=== PATIENT | female | born 1985 | race Caucasian/White ===

== ENCOUNTER 2020-08-13 01:42 | Outpatient (CLI) | payer BC, SELFPAY ==
[2020-08-13 18:27] LABS: *AMPHETAMINES SCREEN URINE Negative (Negative); *BARBITURATES SCREEN URINE Negative (Negative); *BENZODIAZEPINES SCREEN URINE Negative (Negative); Cannabinoids THC Negative (Negative); Cocaine Screen,Urine Negative (Negative); METHADONE URINE SCREEN Negative (Negative); OPIATES URINE SCREEN Negative (Negative)
[2020-08-13 19:15] LABS: Tricyclic Antidepressants Negative (Negative)
[2020-08-16 02:45] LABS: Chlamydia amplified RNA Negative (Negative); N gonorrhoeae amplified RNA Negative (Negative); Source ENDOCERVIX
[2020-08-19 09:08] LABS: Buprenorphine Negative; Norbuprenorphine Negative
== END 2020-08-13 02:02 ==
PROVIDERS: Visit Provider Advanced Practice Midwife
DX: Z34.91 Encounter for supervision of normal pregnancy, unspecified, first trimester (principal)
CPT/HCPCS: 80307; 87491; 87591; 87086; 87480; 87510; 87660

== ENCOUNTER 2020-09-01 03:08 | Outpatient (CLI) | payer BC, SELFPAY ==
[2020-09-01 11:42] LABS: Kit/Specimen SENT
[2020-09-01 12:01] LABS: Abs Immature Grans 0.02 10^3/uL (0.0-0.06); Absolute Basophil Count 0.01 10^3/uL (0.0-0.2); Absolute Eosinophil Count 0.11 10^3/uL (0.0-0.7); Absolute Lymphocyte Count 2.33 10^3/uL (1.2-3.4); Absolute Monocyte Count 0.55 10^3/uL (0.1-0.8); Absolute Neutrophil Count 5.55 10^3/uL (1.2-6.7); Basophils % 0.1; Eosinophils % 1.3; HCT 37.7 % (36.0-46.0); HGB 12.5 g/dL (11.2-15.7); Immature Grans % 0.2; Lymphocytes % 27.2; MCH 29.1 pg (27.0-33.0); MCHC 33.2 % (32.0-36.0); MCV 87.7 fL (80-95); Monocytes % 6.4; Neutrophils % 64.8; Nucleated RBC 0 %; Platelet Count 216 10^3/uL (130-400); RDW 13.4 % (11.7-14.6); WBC 8.57 10^3/uL (4.4-10.8)
[2020-09-01 15:19] LABS: TSH (W/Ref FT4) 1.38 uIU/mL (0.36-3.74)
[2020-09-02 10:05] LABS: Hepatitis B Surface Ag Negative (Negative)
[2020-09-02 10:44] LABS: Varicella IgG Antibody Positive (See Note)
[2020-09-02 10:46] LABS: Rubella IgG Ab (UVM) Positive (See Note)
[2020-09-02 11:01] LABS: Hepatitis C Ab w Rflx HCV PCR Negative (Negative)
[2020-09-02 12:44] LABS: HIV-1/2 Ag & Ab Screen Negative (Negative)
[2020-09-02 16:25] LABS: Syphilis Total Ab w/Reflex Nonreactive (Nonreactive)
== END 2020-09-01 03:28 ==
PROVIDERS: Visit Provider Advanced Practice Midwife
DX: Z34.91 Encounter for supervision of normal pregnancy, unspecified, first trimester (principal); Z11.4 Encounter for screening for human immunodeficiency virus [HIV]; Z11.59 Encounter for screening for other viral diseases; Z01.84 Encounter for antibody response examination
CPT/HCPCS: 36415; 86787; 86803; 86850; 86900; 86901; 87340; 87389; 84443; 85025; 86762; 86780

== ENCOUNTER 2020-11-18 02:22 | Outpatient (CLI) | payer BC, SELFPAY ==
[2020-11-18 09:44] LABS: Abs Immature Grans 0.06 10^3/uL (0.0-0.06); Absolute Basophil Count 0.02 10^3/uL (0.0-0.2); Absolute Eosinophil Count 0.18 10^3/uL (0.0-0.7); Absolute Lymphocyte Count 1.88 10^3/uL (1.2-3.4); Absolute Monocyte Count 0.61 10^3/uL (0.1-0.8); Absolute Neutrophil Count 6.75 10^3/uL (1.2-6.7); Basophils % 0.2; Eosinophils % 1.9; HGB 12.8 g/dL (11.2-15.7); Immature Grans % 0.6; Lymphocytes % 19.8; MCH 29.6 pg (27.0-33.0); MCHC 33.7 % (32.0-36.0); MPV 10.5 fL (8.0-11.0); Monocytes % 6.4; Neutrophils % 71.1; Nucleated RBC 0 %; Platelet Count 220 10^3/uL (130-400); RBC 4.32 10^6/uL (3.93-5.22); RDW 12.9 % (11.7-14.6); RDW-SD 41.4 fL
[2020-11-18 09:54] LABS: Glucose,1 Hr (Glucola) 78 mg/dL (80-140)
== END 2020-11-18 02:23 | disposition home or self-care (01) ==
LOC: LBO 02:22
PROVIDERS: Obstetrics & Gynecology Gynecology; Visit Provider Advanced Practice Midwife
DX: Z34.93 Encounter for supervision of normal pregnancy, unspecified, third trimester (principal); Z3A.28 28 weeks gestation of pregnancy
CPT/HCPCS: 36415; 82950; 85025

== ENCOUNTER 2020-12-03 03:57 | Outpatient (CLI) | payer BC, SELFPAY ==
[2020-12-04 04:53] LABS: Vitamin D 25 Total 56.3 ng/ml (30-100)
== END 2020-12-03 03:58 | disposition home or self-care (01) ==
LOC: LBO 03:57
PROVIDERS: Visit Provider Advanced Practice Midwife
DX: Z34.93 Encounter for supervision of normal pregnancy, unspecified, third trimester (principal)
CPT/HCPCS: 36415; 82306

== ENCOUNTER 2020-12-16 01:48 | Outpatient (CLI) | payer BC, SELFPAY ==
--- NOTE | 2020-12-16 06:45 | DI.US_ITS ---
EXAM: US OB KOBI WEIGHT CLINICAL HISTORY: growth, KOBI, marginal cord insert,O43.199. TECHNIQUE: Transabdominal obstetrical ultrasound performed. COMPARISON: No exams were available for comparison FINDINGS: Transabdominal obstetrical ultrasound performed. FINDINGS: Number of fetuses: One. position: Cephalic. Placental location: Posterior. No evidence of previa. BIOMETRIC DATA: BPD: 78 mm = 31 weeks 3 days HC: 287 mm = 31 weeks 4 days AC: 272 mm = 31 weeks 2 days FL: 57 mm = 29 weeks 6 days EFW: 1658 grms 26% Composite Age: 31 weeks EDC: 02/17/2021 Heart Rate: 117BPM Amniotic fluid index: 14.5 cm. Visually, amount of fluid is within normal limits. Other: Placental cord insertion site is 1.9 cm from the placental edge. There does appear to be an e chogenic focus seen in the left ventricle. IMPRESSION: 1. Single live intrauterine gestation as above. 2. Marginal placental cord insertion site. 3. Echogenic focus seen in the left ventricle. 4. Estimated weight is 1658gms. 5. Amniotic fluid index is 14.5 cm. Visually within normal limits. DATA REPOSITORY:
== END 2020-12-16 02:08 ==
PROVIDERS: Visit Provider Advanced Practice Midwife
DX: O43.193 Other malformation of placenta, third trimester (principal)
CPT/HCPCS: 76816

== ENCOUNTER 2021-01-13 01:20 | Outpatient (CLI) | payer BC, SELFPAY ==
--- NOTE | 2021-01-13 07:30 | DI.US_ITS ---
EXAM: US OB KOBI WEIGHT CLINICAL HISTORY: interval growth,MARGINAL INSERTION UMBILICAL CORD TECHNIQUE: Ultrasound performed using standard protocol. COMPARISON: US US OB KOBI WEIGHT from 12/16/2020 FINDINGS: Ob ultrasound was performed utilizing 3rd trimester protocol. Placenta is posterior with no evidence of placenta previa. Note is again made of marginal cord insertion, it now lies about 2.5 cm from th e placental edge. Previously noted echogenic foci seen in left ventricle are not visualized on today 's examination. biometry is consistent with gestational age of 35 weeks 0 days and EDC of February 17. The estima marisa weight is 2554 grams which is at the 38th percentile for predicted gestational age There is visually a normal quantity of amniotic fluid and the KOBI is 14. heart rate is 147 BPM. IMPRESSION: DATA REPOSITORY:
== END 2021-01-13 01:40 ==
PROVIDERS: Visit Provider Advanced Practice Midwife
DX: O43.193 Other malformation of placenta, third trimester (principal); Z3A.35 35 weeks gestation of pregnancy
CPT/HCPCS: 76816

== ENCOUNTER 2021-01-20 14:15 | Outpatient (CLI) | payer BC, SELFPAY ==
[2021-01-20 14:27] VITALS: TEMP 36.9
[2021-01-20 14:44] VITALS: BP 117/83; PULSE 84
[2021-01-20 14:57] VITALS: TEMP 36.9
--- NOTE | 2021-01-20 14:57 | W.OBNST ---
Date of service: 01/20/21 Time of Service: 14:57 NST Evaluation Reason for NST Reasons for Nonstress Test: GESTATIONAL HYPERTENSION Gestational Age Gestational Age in Weeks and Days: 36 Weeks and 2Days Vital Signs Temperature: 98.4 F NST Information Date on Monitor: 01/20/21 Time on Monitor: Date off Monitor: 01/20/21 NST Interventions: PO Hydration NST Evaluation Patient States Movement: Present FHR Baseline: 140 Variability: Moderate 6-25 bpm Accelerations: 15x15 Decelerations: None NST Results: Reactive Note NST Note Note: BP check: normotensive NST Reviewed and Verified by: Lashaun Pittman
== END 2021-01-20 15:00 | disposition home or self-care (01) ==
LOC: BCD 14:19 → OBS 14:21
PROVIDERS: Visit Provider Advanced Practice Midwife
DX: O13.3 Gestational [pregnancy-induced] hypertension without significant proteinuria, third trimester (principal); Z3A.36 36 weeks gestation of pregnancy
CPT/HCPCS: 59025

== ENCOUNTER 2021-01-20 18:37 | Outpatient (REF) | payer BC, SELFPAY ==
[2021-01-20 18:06] LABS: *AMPHETAMINES SCREEN URINE Negative (Negative); *BARBITURATES SCREEN URINE Negative (Negative); *BENZODIAZEPINES SCREEN URINE Negative (Negative); Cannabinoids THC Negative (Negative); Cocaine Screen,Urine Negative (Negative); METHADONE URINE SCREEN Negative (Negative); OPIATES URINE SCREEN Negative (Negative)
[2021-01-20 18:07] LABS: Tricyclic Antidepressants Negative (Negative)
[2021-01-27 12:41] LABS: Buprenorphine Negative ng/mL (Cutoff: 5.0)
== END 2021-01-20 18:38 | disposition home or self-care (01) ==
LOC: LBN 18:37
PROVIDERS: Visit Provider Advanced Practice Midwife
DX: Z34.93 Encounter for supervision of normal pregnancy, unspecified, third trimester (principal); Z36.85 Encounter for antenatal screening for Streptococcus B; Z3A.37 37 weeks gestation of pregnancy
CPT/HCPCS: 80307; 87081

== ENCOUNTER 2021-01-23 10:04 | Outpatient (CLI) | payer BC, SELFPAY ==
[2021-01-23 10:37] VITALS: BP 147/85; PULSE 97; TEMP 36.9
[2021-01-23 10:56] VITALS: BP 147/85; PULSE 97
--- NOTE | 2021-01-23 11:07 | HPE_ITS ---
Date of service: 01/23/21 Time of Service: 11:07 Assessment and Plan Assessment and plan (1) History of pre-eclampsia in prior , currently in first trimester: Start date: 01/23/21 Start time: 11:15 Status: Acute Assessment and plan: will obtain baseline pre-eclampsia labs and repeat BP. Discussed that if labs are normal, we recommend twice weekly NST's. If abnormal will review with Dr. Cole who is OB hydrogenation still operator today for further plan of care. Patient has been educated on symptoms and signs of preeclampsia. KH (2) : Status: Acute OB-HPI Labor/Delivery History of Present Illness Reason for Visit: NST Chief Complaint: Other (elevated BP at home this morning 130/105, no FLORES, visual disturbance or epigastric pain.). CLEM Calculator Estimated Delivery Date Method Current WG Current Estimate 02/15/21 Ultrasound #1 36w 5d Other Estimates 02/15/21 LMP (Certain) 36w 5d History of Present Expected Delivery Route/Plan - CNM FOB - Rogelio Alves (third child together), works in [employer] and [email or web address]. Does not want to know gender; if male, no circ Interested in using tub for labor, maybe Specific Issues/Plan 1. AMA -[place]: low prob x3, low prob for X-linked aneuploidy. CF/SMA previously neg. Undecided re: AFP 1a. [facility] level 2 sono: Echogenic intracardiac focus. Marginal cord insertion, growth US recommended at 32 wks 1b. Growth scan at 32 wks done 12/16/20, EFW in 26th percentile, KOBI 14.5, will repeat at 36 wks (01/13) 1c. Ultrsound at 35 weeks- KOBI 14, EFW 38%ile. No evidence of EICF. 2. History of Gestational Hypertension x2. ASA 162 mg recommended daily 2a. Per [facility] consult -home B.P. monitoring at 20-24 weeks. Discussed w/pt 10/28/20 2b. doing random BP's at home, 120/70 average, no BP's > 130/80 3. History of genital herpes - prophylaxis at 36 weeks. 4. Vit D level @ pt request, 56.3, no further Vit D supplementation needed 5. Partner is vaccinated for covid. Catrina has received first injection. 6. Size less than dates - EFW by US 3%ile. Assessment: History Reviewed & Current Review of Systems All systems reviewed & are unremarkable except as noted in HPI and below PFSH Medical History (Updated 11/18/20 @ 10:57 by Yudy Bradford CNM) Asthma Bruising History of herpes genitalis Family History (Updated 08/13/20 @ 15:27 by Yudy Ibrahim CNM) Father Brain tumor at 51 Mother Psoriasis Paternal Aunt Breast cancer Paternal Cousin Breast cancer Paternal Grandmother Breast cancer Thyroid disease Paternal Uncle Thyroid disease Social History (Updated 09/30/20 @ 12:45 by Maty Denny MD) Smoking/Tobacco Use Status: Never Smoking risk assessment performed?: Yes Drug use: Never Household members: spouse, children and other Details: 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 Pets and animals: Yes History History 4 Para 2 Hx # Term Pregnancies 2 Multiple births 0 Hx # Pregnancies 0 Ectopic pregnancies 0 AB induced 1 Hx Number of Living Children 2 AB spontaneous 0 Past Pregnancies Del. Date GA/Weeks # Outcome Route Wgt Sex Labor Lgth Anesthes ia Location Prov [facility] 08/06/16 38 No Successful vaginal 6 lb 4 oz Male 12 [facility] 40 No Successful vaginal 8 lb 4 oz Male 6 [facility] and [place], [place] Delivery Date: 08/06/16 IOL for mild preeclampsia. No abnormal labs. jaundice. Yudy Ibrahim Delivery Date: 07/08/18 B.P. elevated post . Labs WNL. Started antihypertensive medication after delivery Yudy Ibrahim Meds Allergies and Home Medications Allergies Allergy/AdvReac Type Severity Reaction Status Date / Time epinephrine Allergy Severe Wheezing Verified 01/20/21 13:45 Home Medications Medication Instructions Recorded Confirmed Type prenat.vits,cris,[id number] 1 tab PO DAILY 07/16/20 09/30/20 History aspirin 81 mg tablet,delayed 162 mg PO DAILY tab 09/09/20 09/30/20 History release budesonide 90 mcg/actuation breath 1 inh INHALATION BID PRN 11/18/20 History activated powder inhaler cholecalciferol (vitamin D3) 50 3,000 unit PO DAILY cap 11/18/20 History mcg (2,000 unit) capsule valacyclovir 1 gram tablet 1,000 mg PO DAILY #30 tab 12/30/20 12/30/20 Rx Exam Physical Exam Vital signs: Pulse BP 97 H 147/85 H 01/23/21 10:56 01/23/21 10:56 Vital Signs Reviewed: Yes Narrative: Catrina admits to anxiety as she is concerned of developing pre- ecalmpsia. She reports that with her first child she developed elevated BP's but no protein in urine and was induced after 37 weeks gestation for such. She is hoping to not need induction. Denies any severe features, no swelling, no FLORES, no visual disturbances or epigastric pain. Reports active baby. No LOF or vaginal bleeding. No consistent contractions. KH Constitutional Constitutional: no acute distress Detailed Labor and Delivery Exam Batres Score: Cervical Points Exam 0 1 2 3 Dilation Closed 1-2cm 3-4 cm 5-6cm Effacement 0-30% 40-50% 60-70% 80% Consistency Firm Medium Soft Station -3 -2 -1,0 +1,+2 Position Posterior Mid Anterior Amniotic Membrane Status: Intact Monitor Mode: External Contraction Frequency(min): irregular / rare Contraction Duration(sec): 60-90 Contraction Intensity: Mild Fetus A Heart Rate Baseline: 135 Monitor Accelerations: 15 X 15 Monitor Decelerations: None Variability: Moderate (6-25 BPM) HEENT Exam HEENT Exam: Normal Neck Exam Neck Exam: Not Done Chest/Brest/Axilla Exam Chest Exam: Not Done Breast Exam Breast Exam: Not Done Respiratory Exam Respiratory Exam: Normal Cardiovascular Exam Cardiovascular Exam: Normal (HR 97 on initial VS) Detailed Abdominal Exam Abdominal: Present soft Comments: Gravid, size equals dates, cephalic by leopolds Rectal Exam Rectal Exam: Not Done Exam Exam: Not Done Extremities Exam Extremities Exam: Normal (no edema in hands, feet, ankles, face) Back/Spine/Pelvis Exam Back Exam: Not Done Skin Exam Skin Exam: Not Done Neurological Exam Neurological Exam: Normal (no hyper reflexia) Psychiatric Exam Psychiatric Exam: Normal Risk Assessment Risk for Shoulder Dystocia Historical/Initial OB: NEGATIVE FOR: Pelvic Abnormality, Pre- BMI>30, Previous Shoulder Dystocia or Previous Macrosomia Increased Risk?: No Risk for Pre-Eclampsia Yes, if one or more: POSTIVE FOR: Hx Pre-E/Gest HTN; NEGATIVE FOR: Chronic HTN, Multiple Gestation, Pre-gestational DM, Renal Disease, Systemic Lupus or APA Syndrome Yes, if 2 or more: POSITIVE FOR: Age>= 35 yrs; NEGATIVE FOR: Nulliparity, >10yr btwn pregnancies, BMI>30, ethinicty, Mother/Sister w/ Pre-E or Previous IUGR Risk for Post- Hemorrhage Initial: NEGATIVE FOR: Multiple Gestation, Previous PPH, Known Clotting Deficiency, Grand Multiparity or Anticoagulation Risks Reviewed Risks Reviewed Upon Admission: Yes (NST and ob observation today, risk diagnosis deferred until admission)
[2021-01-23 11:18] VITALS: BP 139/96; PULSE 100
[2021-01-23 11:24] LABS: HCT 31.9 % (36.0-46.0); HGB 10.8 g/dL (11.2-15.7); MCH 28.4 pg (27.0-33.0); MCHC 33.9 % (32.0-36.0); MCV 83.9 fL (80-95); MPV 11.4 fL (8.0-11.0); Platelet Count 194 10^3/uL (130-400); RDW 12.4 % (11.7-14.6); RDW-SD 37.8 fL; WBC 8.59 10^3/uL (4.4-10.8)
--- NOTE | 2021-01-23 11:26 | W.OBNST ---
Date of service: 01/23/21 Time of Service: 11:20 NST Evaluation Reason for NST Reasons for Nonstress Test: GESTATIONAL HYPERTENSION Gestational Age Gestational Age in Weeks and Days: 36 Weeks and 5Days Test and Monitor Explained Test/Monitor Explained: Test Explained, Monitor Explained and Patient Verbalized Understanding Vital Signs Blood Pressure: 147/85 Pulse: 97 Temperature: 98.4 F NST Information Date on Monitor: 01/23/21 Time on Monitor: 10:42 Date off Monitor: 01/23/21 Time off Monitor: 11:20 Total Time on Monitor: 38 NST Interventions: PO Hydration NST Evaluation Patient States Movement: Present Variability: Moderate 6-25 bpm Accelerations: 15x15 Decelerations: None NST Results: Reactive Note NST Note Note: Catrina presented for NST due to elevated home BP this morning of 130/105. BP 147/85 here on initial assessment. Preeclampsia labs ordered and will continue to monitor BP while awaiting results. No other complaints. NST is reactive and reassuring. See H&P. NST Reviewed and Verified by: Yudy Bradford
[2021-01-23 11:28] VITALS: BP 147/85; PULSE 97; TEMP 36.9
[2021-01-23 11:32] LABS: ALT 16 U/L (14-59); AST 19 U/L (15-37); Albumin 2.4 g/dL (3.4-5.0); Alkaline Phosphatase 124 U/L (46-116); Anion Gap 8.9 mmol/L (3-11); BUN 8 mg/dL (7-18); Bilirubin, Total 0.3 mg/dL (0.2-1.0); CO2 25.1 mmol/L (21.0-32.0); CREATININE 0.6 mg/dL (0.55-1.02); Calcium 8.5 mg/dL (8.5-10.1); Chloride 105 mmol/L (98-107); Glucose 98 mg/dL (74-106); LDH 183 U/L (81-234); Potassium 3.7 mmol/L (3.5-5.1); Sodium 139 mmol/L (136-145); Total Protein 5.7 g/dL (6.4-8.2); Uric Acid 3.9 mg/dL (2.6-6.0)
[2021-01-23 12:21] LABS: COMMENT (LAB VIEW ONLY) 67.24 mg/dL; PROTEIN 7.2 mg/dL
--- NOTE | 2021-01-23 12:31 | DSE_ITS ---
Date of service: 01/23/21 Time of Service: 12:31 DS: Diagnosis Discharge Diagnosis (1) History of pre-eclampsia in prior , currently in first trimester: Status: Acute (2) : Status: Acute Discharge Plan Disposition Patient Disposition: HOME Condition: Good Discharge Details Reason For Visit: NST Attending Provider: Yudy Bradford Primary Care Provider: Unknown,Unknown Hospital Course Hospital Course: Had reactive NST and pre-eclampsia labs that were negative today. Will start twice weekly NST's. Home Meds and New Rx's Prescriptions: No Action valacyclovir [Valtrex] 1 gram tablet 1,000 mg PO DAILY Qty: 30 RF: 0 Pulmicort Flexhaler 90 mcg/actuation aerosol powdr breath activated 1 inh inhalation BID PRNRF: 0 cholecalciferol (vitamin D3) [Vitamin D3] 50 mcg (2,000 unit) capsule 3,000 unit PO DAILY RF: 0 prenat.vits,cris,jsj-zxks-kjutz Tablet 1 tab PO DAILY RF: 0 aspirin 81 mg tablet,delayed release (DR/EC) 162 mg PO DAILY RF: 0 Discharge Instructions Activity:: Activity as Tolerated Activity:: Activity as Tolerated Equipment/Supplies:: No Equipment Needed Diet:: As Tolerated Discharge Data Discharge Date/Time-TO BE ENTERED AT DEPARTURE: 01/23/21 12:30 Discharge Physician: Yudy Bradford OB:DS Summary Contraception Discussed Contraception Discussed: No, Status at Discharge Functional status at discharge: independent ambulation Overall status at discharge: patient is back to baseline Mental Status: mental status grossly normal Speech and Movement: speech and movement normal Mood: congruent mood Affect: normal affect Exam Physical Exam Vital signs: Pulse BP 100 H 139/96 H 01/23/21 11:18 01/23/21 11:18 Vital Signs Reviewed: Yes Notable Details: Pre eclampsia labs neg, NO symptoms, reactive NST. Constitutional Constitutional: no acute distress HEENT Exam HEENT Exam: Normal Neck Exam Neck Exam: Not Done Respiratory Exam Respiratory Exam: Not Done Cardiovascular Exam Cardiovascular Exam: Not Done Fundal Exam Comment: size equals dates. Extremities Exam Extremity Exam: Normal Neurological Exam Neurological Exam: Normal Psychiatric Exam Psychiatric Exam: Normal COUNT INCLUDES THE [facility] Medical History (Updated 11/18/20 @ 10:57 by Yudy Bradford CNM) Asthma Bruising History of herpes genitalis Family History (Updated 08/13/20 @ 15:27 by Yudy Ibrahim CNM) Father Brain tumor at 51 Mother Psoriasis Paternal Aunt Breast cancer Paternal Cousin Breast cancer Paternal Grandmother Breast cancer Thyroid disease Paternal Uncle Thyroid disease Social History (Updated 09/30/20 @ 12:45 by Maty Denny MD) Smoking/Tobacco Use Status: Never Smoking risk assessment performed?: Yes Drug use: Never Household members: spouse, children and other Details: 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 Pets and animals: Yes History History 4 Para 2 Hx # Term Pregnancies 2 Multiple births 0 Hx # Pregnancies 0 Ectopic pregnancies 0 AB induced 1 Hx Number of Living Children 2 AB spontaneous 0 Past Pregnancies Del. Date GA/Weeks # Outcome Route Wgt Sex Labor Lgth Anesthes ia Location [facility] 08/06/16 38 No Successful vaginal 6 lb 4 oz Male 12 [facility] 40 No Successful vaginal 8 lb 4 oz Male 6 [facility] and [place], [place] Delivery Date: 08/06/16 IOL for mild preeclampsia. No abnormal labs. jaundice. Yudy Ibrahim Delivery Date: 07/08/18 B.P. elevated post . Labs WNL. Started antihypertensive medication after delivery Yudy Ibrahim DS: Data Vitals/I&O Vitals and I&O: Vital Signs Pulse 100 H 01/23/21 11:18 Blood Pressure 139/96 H 01/23/21 11:18 Data Completed and Pending Labs on day of discharge: Labs from last 24 hours 01/23/21 01/23/21 01/23/21 11:30 11:11 11:11 WBC 8.59 RBC 3.80 L Hgb 10.8 L Hct 31.9 L MCV 83.9 MCH 28.4 MCHC 33.9 RDW 12.4 Plt Count 194 MPV 11.4 H Sodium 139 Potassium 3.7 Chloride 105 Carbon Dioxide 25.1 Anion Gap 8.9 BUN 8 Creatinine 0.6 Estimated GFR/1.73 m2 >= 60.00 Glucose 98 Uric Acid 3.9 Calcium 8.5 Total Bilirubin 0.3 AST 19 ALT 16 Alkaline Phosphatase 124 H Lactate Dehydrogenase 183 Total Protein 5.7 L Albumin 2.4 L Ur Random Creatinine 67.24 U Random Total Protein 7.2 U [place] Prot/Creat Ratio 0.10
== END 2021-01-23 12:30 | disposition home or self-care (01) ==
LOC: BCD 10:08 → OBS 10:32
PROVIDERS: Visit Provider Advanced Practice Midwife
DX: O13.3 Gestational [pregnancy-induced] hypertension without significant proteinuria, third trimester (principal); O09.293 Supervision of pregnancy with other poor reproductive or obstetric history, third trimester; Z3A.36 36 weeks gestation of pregnancy
CPT/HCPCS: 59025; 36415; 80053; 85027; 82565; 83615; 84156; 84550

== ENCOUNTER 2021-01-27 07:05 | Outpatient (CLI) | payer BC, SELFPAY ==
[2021-01-27 11:07] VITALS: BP 130/76; PULSE 86; TEMP 36.8
[2021-01-27 11:13] VITALS: BP 130/76; PULSE 86; TEMP 36.8
--- NOTE | 2021-01-27 11:25 | W.OBNST ---
Date of service: 01/27/21 Time of Service: 11:25 NST Evaluation Reason for NST Reasons for Nonstress Test: CHRONIC HYPERTENSION Gestational Age Gestational Age in Weeks and Days: 37 Weeks and 2Days Test and Monitor Explained Test/Monitor Explained: Test Explained, Monitor Explained and Patient Verbalized Understanding Vital Signs Blood Pressure: 130/76 Pulse: 86 Temperature: 98.2 F Urine Results Urine Protein: Negative Urine Ketones: Positive Urine Glucose: Negative Urine Blood: Negative NST Information Date on Monitor: 01/27/21 Time on Monitor: 11:01 Date off Monitor: 01/27/21 Time off Monitor: 11:23 Total Time on Monitor: 22 NST Interventions: PO Hydration NST Evaluation Patient States Movement: Present FHR Baseline: 135 Variability: Moderate 6-25 bpm Accelerations: 15x15 Decelerations: None NST Results: Reactive Note NST Note Note: Catrina presents for scheduled NST. No complaints, reports active baby. Plans to change time of Valtrex dosage to day vs evening to see if it affects her BP's as she feels she is better hydrated in the daytime. Will keep office appointment 01/28/21 and NST 01/30/21.Today's NST is reactive and reassuring with CAT I tracing. No evidence of contractions.AMIE NST Reviewed and Verified by: Yudy Bradford
[2021-01-27 11:27] VITALS: BP 130/76; PULSE 86; TEMP 36.8
== END 2021-01-27 11:23 | disposition home or self-care (01) ==
LOC: BCD 07:09 → OBS 10:59
PROVIDERS: Visit Provider Advanced Practice Midwife
DX: O10.013 Pre-existing essential hypertension complicating pregnancy, third trimester (principal); Z3A.37 37 weeks gestation of pregnancy
CPT/HCPCS: 59025

== ENCOUNTER 2021-01-30 08:54 | Outpatient (CLI) | payer BC, SELFPAY ==
[2021-01-30 11:05] VITALS: BP 140/81; PULSE 77; TEMP 36.8
[2021-01-30 11:28] VITALS: BP 140/81; PULSE 77
--- NOTE | 2021-01-30 11:42 | W.OBNST ---
Date of service: 01/30/21 Time of Service: 11:43 NST Evaluation Reason for NST Reasons for Nonstress Test: GESTATIONAL HYPERTENSION Gestational Age Gestational Age in Weeks and Days: 37 Weeks and 5Days Test and Monitor Explained Test/Monitor Explained: Test Explained, Monitor Explained and Patient Verbalized Understanding Vital Signs Blood Pressure: 140/81 Pulse: 77 Temperature: 98.2 F NST Information Date on Monitor: 01/30/21 Time on Monitor: 11:05 Date off Monitor: 01/30/21 Time off Monitor: 11:37 Total Time on Monitor: 32 NST Interventions: PO Hydration and Reposition Patient NST Evaluation Patient States Movement: Present FHR Baseline: 130 Variability: Moderate 6-25 bpm Accelerations: 15x15 Decelerations: None NST Results: Reactive Note NST Note Note: Catrina is here for scheuled NST, no complaints. NST is reactive and reassuring. Will RTO for visit as scheduled and continue NST's twice weekly. NST Reviewed and Verified by: Yudy Bradford
[2021-01-30 11:43] VITALS: BP 140/81; PULSE 77; TEMP 36.8
[2021-01-30 16:37] VITALS: BP 119/76; PULSE 80
== END 2021-01-30 11:40 | disposition home or self-care (01) ==
LOC: BCD 08:56 → OBS 10:18
PROVIDERS: Visit Provider Advanced Practice Midwife
DX: O13.3 Gestational [pregnancy-induced] hypertension without significant proteinuria, third trimester (principal); Z3A.37 37 weeks gestation of pregnancy
CPT/HCPCS: 59025

== ENCOUNTER 2021-02-03 08:33 | Outpatient (CLI) | payer BC, SELFPAY ==
[2021-02-03 11:09] VITALS: BP 136/81; PULSE 92; TEMP 36.7
[2021-02-03 11:23] VITALS: BP 136/81; PULSE 92
--- NOTE | 2021-02-10 13:02 | W.OBNST ---
Date of service: 02/03/21 Time of Service: 17:00 NST Evaluation Reason for NST Reasons for Nonstress Test: GESTATIONAL HYPERTENSION Gestational Age Gestational Age in Weeks and Days: 39 Weeks and 2Days Test and Monitor Explained Test/Monitor Explained: Test Explained, Monitor Explained and Patient Verbalized Understanding Vital Signs Blood Pressure: 136/81 Pulse: 92 Temperature: 98.1 F Urine Results Urine Protein: Negative Urine Ketones: Negative Urine Glucose: Negative Urine Blood: Negative NST Information Date on Monitor: 02/03/21 Time on Monitor: 11:18 Date off Monitor: 02/03/21 Time off Monitor: 11:45 Total Time on Monitor: 27 NST Interventions: PO Hydration NST Evaluation Patient States Movement: Present FHR Baseline: 130 Variability: Moderate 6-25 bpm Accelerations: 15x15 Decelerations: None NST Results: Reactive Note NST Note Note: Reactive NST, Continue 2 x weekly NST for history of preeclampsia and borderline hypertension NST Reviewed and Verified by: Yudy Ibrahim
[2021-02-10 13:03] VITALS: BP 136/81; PULSE 92; TEMP 36.7
== END 2021-02-03 11:45 | disposition home or self-care (01) ==
LOC: BCD 08:33 → OBS 11:06
PROVIDERS: Visit Provider Advanced Practice Midwife
DX: O13.3 Gestational [pregnancy-induced] hypertension without significant proteinuria, third trimester (principal); Z3A.39 39 weeks gestation of pregnancy
CPT/HCPCS: 59025

== ENCOUNTER 2021-02-06 07:20 | Outpatient (CLI) | payer BC, SELFPAY ==
[2021-02-06 08:07] VITALS: BP 136/95; PULSE 91; TEMP 37.1
[2021-02-06 08:21] VITALS: BP 136/95; PULSE 91
[2021-02-06 08:30] VITALS: BP 124/79; PULSE 80
--- NOTE | 2021-02-06 08:42 | W.OBNST ---
Date of service: 02/06/21 Time of Service: 08:30 NST Evaluation Reason for NST Reasons for Nonstress Test: GESTATIONAL HYPERTENSION Gestational Age Gestational Age in Weeks and Days: 38 Weeks and 5Days Test and Monitor Explained Test/Monitor Explained: Test Explained, Monitor Explained and Patient Verbalized Understanding Vital Signs Blood Pressure: 136/95 Pulse: 91 Temperature: 98.8 F NST Information Date on Monitor: 02/06/21 Time on Monitor: 08:09 Date off Monitor: 02/06/21 Time off Monitor: 08:35 Total Time on Monitor: 26 NST Interventions: PO Hydration NST Evaluation Patient States Movement: Present FHR Baseline: 135 Variability: Moderate 6-25 bpm Accelerations: 15x15 Decelerations: None NST Results: Reactive Note NST Note Note: No complaints, denies FLORES, visual disturbance or epigastric pain. States she is hoping to be delivered later in the 39th week if possible. repairer typewriter instructed patient to bring her bags to stay next Tuesday but if BP's are stable and the bill poster installer chief [employer] division feels she can be pushed closer to 40 weeks for induction we will accommodate that. Patient agrees with this plan. Otherwise will induce on 02/10/21. Patient is hoping to avoid pitocin if possible. Legislative Correspondent reviewed this would be determined by cervical exam next week. Initial BP elevated today 138/95 but within a few minutes of resting it was 124/79. I have reviewed signs of pre-eclampsia and labor and when to call. NST Reviewed and Verified by: Yudy Bradford
[2021-02-06 08:43] VITALS: BP 136/95; PULSE 91; TEMP 37.1
[2021-02-06 09:06] VITALS: BP 135/95; PULSE 102
== END 2021-02-06 08:37 | disposition home or self-care (01) ==
LOC: BCD 07:22 → OBS 07:40
PROVIDERS: Visit Provider Advanced Practice Midwife
DX: O13.3 Gestational [pregnancy-induced] hypertension without significant proteinuria, third trimester (principal); Z3A.38 38 weeks gestation of pregnancy
CPT/HCPCS: 59025

== ENCOUNTER 2021-02-10 08:12 | Outpatient (CLI) | payer BC, SELFPAY ==
[2021-02-10 11:04] VITALS: BP 134/75; PULSE 86; TEMP 37.2
--- NOTE | 2021-02-10 19:16 | W.OBNST ---
Date of service: 02/10/21 Time of Service: 19:16 NST Evaluation Reason for NST Reasons for Nonstress Test: GESTATIONAL HYPERTENSION Gestational Age Gestational Age in Weeks and Days: 39 Weeks and 2Days Test and Monitor Explained Test/Monitor Explained: Test Explained, Monitor Explained and Patient Verbalized Understanding Vital Signs Blood Pressure: 134/75 Pulse: 86 Temperature: 99.0 F NST Information Date on Monitor: 02/10/21 Time on Monitor: 11:05 Date off Monitor: 02/10/21 Time off Monitor: 11:43 Total Time on Monitor: 38 NST Interventions: PO Hydration and Reposition Patient NST Evaluation Patient States Movement: Present FHR Baseline: 130 Variability: Moderate 6-25 bpm Accelerations: 15x15 Decelerations: None NST Results: Reactive Note NST Note Note: Normotensive today, returns 02/13 for repeat NST and BP check NST Reviewed and Verified by: Lashaun Pittman
[2021-02-10 19:17] VITALS: BP 134/75; PULSE 86; TEMP 37.2
== END 2021-02-10 11:44 | disposition home or self-care (01) ==
LOC: BCD 08:14 → OBS 11:03
PROVIDERS: Visit Provider Advanced Practice Midwife
DX: O13.3 Gestational [pregnancy-induced] hypertension without significant proteinuria, third trimester (principal); Z3A.39 39 weeks gestation of pregnancy
CPT/HCPCS: 59025

== ENCOUNTER 2021-02-10 19:57 | Inpatient (IN) | payer BC, SELFPAY ==
[2021-02-10] VITALS (10 sets, daily range): BP systolic 132–151; BP diastolic 72–89; PULSE 73–84; RESP 16–18; TEMP 37.1–37.2; O2SAT 99
[2021-02-10] MEDS: Oxytocin 10 UNITS/ML VIAL IM (20:50)
[2021-02-10 20:58] LABS: Source Nasal/Nares
[2021-02-10 21:00] LABS: HCT 34.9 % (36.0-46.0); HGB 11.5 g/dL (11.2-15.7); MCH 27.3 pg (27.0-33.0); MCV 82.9 fL (80-95); MPV 11.9 fL (8.0-11.0); Platelet Count 223 10^3/uL (130-400); RBC 4.21 10^6/uL (3.93-5.22); RDW 12.8 % (11.7-14.6); RDW-SD 38.7 fL; WBC 10.81 10^3/uL (4.4-10.8)
[2021-02-10] MEDS: miSOPROStol 200 MCG TAB 800 MCG PO (21:00)
--- NOTE | 2021-02-10 21:20 | W.PM.OBHPL1 ---
Date of service: 02/10/21 Time of Service: :20 Assessment and Plan Assessment and plan (1) 39 weeks gestation of : Status: Acute Assessment and plan: A: Advanced active labor Intact membranes GBS+ Category 1 tracing P: Delivery imminent OB-HPI Labor/Delivery History of Present Illness Reason for Visit: labor at term Chief Complaint: Uterine Contractions (contractions irregular adn mild all day, became strong at 1900, no ROM, vaginal bloody show noted upon arrival to ). CLEM Calculator Estimated Delivery Date Method Current WG Current Estimate 02/15/21 Ultrasound #1 39w 2d Other Estimates 02/15/21 LMP (Certain) 39w 2d History of Present Expected Delivery Route/Plan - CNM FOB - Rogelio Alves (third child together), works in [facility] and [employer]. Does not want to know gender; if male, no circ Interested in using tub for labor, maybe GBS POSITIVE, plan for PCN prophylaxis in labor Specific Issues/Plan 1. AMA -[place]: low prob x3, low prob for X-linked aneuploidy. CF/SMA previously neg. Undecided re: AFP 1a. [facility] level 2 sono: Echogenic intracardiac focus. Marginal cord insertion, growth US recommended at 32 wks 1b. Growth scan at 32 wks done 12/16/20, EFW in 26th percentile, KOBI 14.5, will repeat at 36 wks (01/13) 1c. Ultrsound at 35 weeks- KOBI 14, EFW 38%ile. No evidence of EICF. 1d. cord insertion at 35 weeks 2.5cm from os, eccentric insertion 2. History of Gestational Hypertension x2. ASA 162 mg recommended daily 2a. Per [facility] consult -home B.P. monitoring at 20-24 weeks. Discussed w/pt 10/28/20 2b. doing random BP's at home, 120/70 average, no BP's > 130/80 3. History of genital herpes - prophylaxis at 36 weeks. 4. Vit D level @ pt request, 56.3, no further Vit D supplementation needed 5. Partner is vaccinated for covid. Catrina has received first injection. 6. Size less than dates - EFW by US 38%ile with KOBI 14 7. GBS positive Review of Systems All systems reviewed & are unremarkable except as noted in HPI and below Constitutional Constitutional: Reports system reviewed and no additional complaints, except as documented Cardiovascular Cardiovascular: Reports system reviewed and no additional complaints, except as documented Respiratory Respiratory: Reports system reviewed and no additional complaints, except as documented Gastrointestinal Gastrointestinal: Reports system reviewed and no additional complaints, except as documented Genitourinary Genitourinary: Reports as per HPI Musculoskeletal Musculoskeletal: Reports system reviewed and no additional complaints, except as documented Integumentary/Breasts Skin/Breast: Reports system reviewed and no additional complaints, except as documented Neurologic Neurologic: Reports system reviewed and no additional complaints, except as documented Psychiatric Psychiatric: Reports system reviewed and no additional complaints, except as documented Endocrine Endocrine: Reports system reviewed and no additional complaints, except as documented PFSH Medical History (Updated 02/10/21 @ 21:30 by Lashaun Pittman) Asthma Bruising History of herpes genitalis Family History (Updated 08/13/20 @ 15:27 by Yudy Ibrahim CNM) Father Brain tumor at 51 Mother Psoriasis Paternal Aunt Breast cancer Paternal Cousin Breast cancer Paternal Grandmother Breast cancer Thyroid disease Paternal Uncle Thyroid disease Social History (Updated 09/30/20 @ 12:45 by Maty Denny MD) Smoking/Tobacco Use Status: Never Smoking risk assessment performed?: Yes Drug use: Never Household members: spouse, children and other Details: 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 Pets and animals: Yes History History 4 Para 2 Hx # Term Pregnancies 2 Multiple births 0 Hx # Pregnancies 0 Ectopic pregnancies 0 AB induced 1 Hx Number of Living Children 2 AB spontaneous 0 Past Pregnancies Del. Date GA/Weeks # Outcome Route Wgt Sex Labor Lgth Anesthesia Location Prov Complic 08/06/16 38 No Successful vaginal 6 lb 4 oz Male 12 local [facility] 07/08/18 40 No Successful vaginal 8 lb 4 oz Male 6 local and [place], [place] Delivery Date: 08/06/16 IOL for mild preeclampsia. No abnormal labs. jaundice. Yudy Ibrahim Delivery Date: 07/08/18 B.P. elevated post . Labs WNL. Started antihypertensive medication after delivery Yudy Ibrahim Meds Allergies and Home Medications Allergies Allergy/AdvReac Type Severity Reaction Status Date / Time epinephrine Allergy Severe Wheezing Verified 02/06/21 08:30 Home Medications Medication Instructions Recorded Confirmed Type prenat.vits,cris,mqh-scwh-irvho 1 tab PO DAILY 07/16/20 02/06/21 History aspirin 81 mg tablet,delayed 162 mg PO DAILY tab 09/09/20 02/06/21 History release budesonide 90 mcg/actuation breath 1 inh INHALATION BID PRN 11/18/20 02/06/21 History activated powder inhaler cholecalciferol (vitamin D3) 50 3,000 unit PO DAILY cap 11/18/20 02/06/21 History mcg (2,000 unit) capsule valacyclovir 1 gram tablet 1,000 mg PO DAILY #30 tab 12/30/20 02/06/21 Rx Exam Physical Exam Vital signs: Pulse BP 80 145/79 H 02/10/21 21:15 02/10/21 21:15 Vital Signs Reviewed: Yes Constitutional Constitutional: no acute distress Detailed Labor and Delivery Exam Dilation: 7 Effacement (%): 100 station: +1 Cervix position: anterior Consistency: soft Batres Score: Cervical Points Exam 0 1 2 3 Dilation Closed 1-2cm 3-4 cm 5-6cm Effacement 0-30% 40-50% 60-70% 80% Consistency Firm Medium Soft Station -3 -2 -1,0 +1,+2 Position Posterior Mid Anterior Amniotic Membrane Status: Intact Contraction Frequency(min): every 3 minutes Contraction Intensity: Strong Fetus A Heart Rate Baseline: 135 Monitor Accelerations: 15 X 15 Monitor Decelerations: None Variability: Moderate (6-25 BPM) Presentation: Cephalic Categories: Category I Est. Weight: 6 lb 9.822 oz Est. Weight: 3000 gm Date of Membrane Rupture: 02/10/21 Time of Membrane Rupture: 20:47 HEENT Exam HEENT Exam: Normal Neck Exam Neck Exam: Normal Chest/Brest/Axilla Exam Chest Exam: Normal Breast Exam Breast Exam: Normal Respiratory Exam Respiratory Exam: Normal Cardiovascular Exam Cardiovascular Exam: Normal Abdominal Exam Abdominal Exam: Normal (Gravid) Rectal Exam Rectal Exam: Normal Exam Exam: Normal Extremities Exam Extremities Exam: Normal Back/Spine/Pelvis Exam Back Exam: Normal Pelvis Adequate: Yes Skin Exam Skin Exam: Normal Neurological Exam Neurological Exam: Normal Psychiatric Exam Psychiatric Exam: Normal Results Results Group Beta Strep: Positive Blood Type: O+ Rubella Status: Immune Varicella Immunity: Immune Abnormal Lab Findings: Abnormal Labs 02/10/21 20:42 WBC 10.81 H Hct 34.9 L MPV 11.9 H Risk Assessment Risk for Shoulder Dystocia Historical/Initial OB: NEGATIVE FOR: Pelvic Abnormality, Pre- BMI>30, Previous Shoulder Dystocia or Previous Macrosomia Increased Risk?: No Delivery Plan @ 36wks: spont labor, Risk for Pre-Eclampsia Daily Dose ASA Indicated: Yes Yes, if one or more: POSTIVE FOR: Hx Pre-E/Gest HTN; NEGATIVE FOR: Chronic HTN, Multiple Gestation, Pre-gestational DM, Renal Disease, Systemic Lupus or APA Syndrome Yes, if 2 or more: POSITIVE FOR: Age>= 35 yrs; NEGATIVE FOR: Nulliparity, >10yr btwn pregnancies, BMI>30, ethinicty, Mother/Sister w/ Pre-E or Previous IUGR Risk for Post- Hemorrhage Initial: NEGATIVE FOR: Multiple Gestation, Previous PPH, Known Clotting Deficiency, Grand Multiparity or Anticoagulation At Risk?: Yes Counseled re: Active Management: Yes Risks Reviewed Risks Reviewed Upon Admission: Yes
--- NOTE | 2021-02-10 21:32 | W.OBDELIVERY ---
Date of service: 02/10/21 Time of Service: 21:32 OB Labor/ Delivery Information Baby A Delivery Delivery Method: Spontaneaous Presentation: Cephalic Cephalic Position: Vertex Vertex Position: Left Occipital Anterior Breech Position: N/A Cord Description-Baby A: 3 Vessels Cord Description Comment: placenta intact with eecentric cord insertion, 1 inch from margin Amniotic Fluid: Clear Estimated Blood Loss: QBL 600 ml Delivery Outcome: Liveborn Transferred: Remains with Mother Note: Pt arrived to active advanced labor, in excellent control accompanied by . Lab called STAT for blood draw, COVID swab collected and IV access established within a 15 minute period. Pt began involuntarily bearing down and head became visible at the introitus, perineum supported by RN until CNM was able to glove, controlled delivery of head over intact perineum for vigorous male infant, shoulders came easily and baby placed directly into mother's arms. Pitocin 10 units given IM, cord ceased pulsating, clamped then cut by FOB, cord blood collected. [place] placenta intact with 3VC, initially heavy vaginal bleeding noted. Fundal massage until firm and CNM kept hand on fundus while monitoring for further bleeding, 800 mcg misoprostel given PO. Moderate amount of clots evacuated from os and lochia reduced to minimal. 1 stitch of 3.0 Vicryl placed in small superficial introital tear. QBL calculated @ 600 ml, pitocin infusion started. Arrival in room to delivery was 22 minutes. Apgars 9/9, weight 2895 gms. Providers Nurse Industrial Roof Plumber: Lashaun Pittman Nurse: Jany Hernandez Nurse: Pam Hernandez Labor/Delivery Information Number of Babies in Womb: 1 Steroids Given: None Reason Steroids Not Administered: N/A Group Beta Strep: Positive Antibiotics Administered: No Rubella Status: Immune Blood Type: O+ Varicella Immunity: Immune Medication in Delivery: 10U Oxytocin IM, 800 mcg misoprostol SL Maternal Complications: Precipitous Labor(<3hrs) Shoulder Dystocia: No Stages of Labor Onset of Labor Date: 02/10/21 Onset of Labor Time: 19:00 Complete Dilatation Date: 02/10/21 Complete Dilatation Time: 20:40 Labor - Stage 1 Duration: 0 minutes ROM Baby A: 02/10/21 ROM Baby A: 20:47 ROM Total Time- Baby A: [id number] Delivery Date-Baby A: 02/10/21 Delivery Time-Baby A: 20:47 Labor Stage 2 Duration: 7 minutes Placenta Delivery Date-Baby A: 02/10/21 Placenta Delivery Time-Baby A: 20:53 Labor-Stage 3 Duration: 6 minutes Total Length of Labor-Baby A: 1 hours and 47 minutes Placenta Status: Delivered Baby A Gender: Male Gestational Status: Term (39-41.6 wks) Gestational Age in Weeks/Days: 39 Weeks and 2 Days weight: 6 lb 6.118 oz Weight Comment: 2895 gms Score-1 Minute Interval(Baby A) Heart Rate-1 minute: 100 BPM or Greater Respiratory Effort- 1 minute: Spontaneous/Strong Cry Muscle Tone-1 minute: Active Movement Reflex Response-1 minute: Prompt Response Color-1 minute: Bluish Hands or Feet Total Score-1 minute: 9 Score-5 Minute Interval(Baby A) Heart Rate- 5 minute: 100 BPM or Greater Respiratory Effort-5 minute: Spontaneous/Strong Cry Muscle Tone-5 minute: Active Movement Reflex Response-5 minute: Prompt Response Color-5 minute: Bluish Hands or Feet Total Score- 5 minute: 9
[2021-02-10 21:35] LABS: COVID-19 PCR Negative (Negative)
[2021-02-10] MEDS: Oxytocin/Normal Saline 30 UNIT/500 ML BAG 334 UNITS IV (21:45)
[2021-02-11 00:45] VITALS: BP 134/79; PULSE 88; RESP 16; TEMP 37
[2021-02-11 06:52] LABS: HGB 10.7 g/dL (11.2-15.7); MCH 27.9 pg (27.0-33.0); MCHC 33.4 % (32.0-36.0); MCV 83.3 fL (80-95); MPV 11.5 fL (8.0-11.0); Platelet Count 191 10^3/uL (130-400); RBC 3.84 10^6/uL (3.93-5.22); RDW 12.9 % (11.7-14.6); RDW-SD 39.1 fL; WBC 12.44 10^3/uL (4.4-10.8)
[2021-02-11 07:31] VITALS: BP 133/92; PULSE 93; RESP 18; TEMP 37.2
--- NOTE | 2021-02-11 10:04 | OBPPV_ITS ---
Date of service: 02/11/21 Time of Service: 10:05 Assessment and Plan Assessment and plan (1) Term delivered: Status: Acute Assessment and plan: A: nml PPD#1 Hx gest HTN, BP's 130's/70's generally No FLORES, abd pain, or vision changes GBS+ without IP prophylaxis P: cont to monitor maternal BP pt plans IUD at 6 wks, options for LARC reviewed Planning for discharge at 48 hrs Will f/up @ 2 & 6 wks PP Consider 1 wk appt for BP check Subjective Subjective Patient comments: No complaints, Pain well controlled, Tolerating diet and Flatus present [place] baby status: Doing well, Nursing well, Rooming in and Strong Bonding Observed [place] feeding status: Exclusively breast feeding Exam Physical Exam Vital signs: Temp Pulse Resp BP Pulse Ox 98.9 F 93 H 18 133/92 H 99 02/11/21 07:31 02/11/21 07:31 02/11/21 07:31 02/11/21 07:31 02/10/21 22:45 Vital Signs Reviewed: Yes Notable Details: BP's nml through the night at 130's over 70's Constitutional Constitutional: no acute distress HEENT Exam HEENT Exam: Normal Neck Exam Neck Exam: Normal Breast Exam Bilateral: Breast Exam: Normal and Soft Nipple Exam: Normal and Uninjured Respiratory Exam Respiratory Exam: Normal Cardiovascular Exam Cardiovascular Exam: Normal Abdominal Exam Abdomen: Other (soft, nontender) Fundal Exam Fundus: Below Umbilicus and Firm Rectal Exam Rectal Exam: Normal Exam Perineum: Intact and Normal Extremities Exam Extremity Exam: Normal and Full ROM Back/Spine/Pelvis Exam Back Exam: Normal Skin Exam Skin Exam: Normal Neurological Exam Neurological Exam: Normal Psychiatric Exam Psychiatric Exam: Normal Results Hemoglobin/Hematocrit: Hgb 10.7 g/dL (11.2-15.7) L 02/11/21 06:40 Hct 32.0 % (36.0-46.0) L 02/11/21 06:40
[2021-02-11 12:30] VITALS: BP 135/82; PULSE 74; RESP 18; TEMP 36.6; O2SAT 99
--- NOTE | 2021-02-11 16:33 | W.PM.OBDISCH ---
Date of service: 02/11/21 Time of Service: 16:33 DS: Diagnosis Discharge Diagnosis (1) Term delivered: Status: Acute Discharge Plan Disposition Patient Disposition: HOME Condition: Good Discharge Details Reason For Visit: labor at term Admit Date/Time: 02/10/21 19:57 Admit Provider: Lashaun Pittman Attending Provider: Lashaun Pittman Primary Care Provider: Unknown,Unknown Hospital Course Hospital Course: Precipitous vaginal delivery, discharged at less than 24 hours PP to accompany baby to [facility] for treatment of jaundice Home Meds and New Rx's Prescriptions: No Action Pulmicort Flexhaler 90 mcg/actuation aerosol powdr breath activated 1 inh inhalation BID PRNRF: 0 cholecalciferol (vitamin D3) [Vitamin D3] 50 mcg (2,000 unit) capsule 3,000 unit PO DAILY RF: 0 prenat.vits,cris,ojk-yxfe-mbjnm Tablet 1 tab PO DAILY RF: 0 Discharge Instructions Additional Instructions: Please keep appointments for 2 & 6 week check-ups with your copper miner. If you plan on IUD insertion, please schedule your 6 wk appt for 1 hour and advise the senior power scheduler which IUD you are requesting. Stand Alone Forms: BC Instructions, NB Instructions, BC Post Vaginal Deliver Activity:: Activity as Tolerated Equipment/Supplies:: No Equipment Needed Diet:: Normal Diet Discharge Orders Discharge Orders: Discharge Order (Routine); Ordered 02/11/21 Ordered By: Lashaun Pittman Procedure Procedures: Cord Blood Collection OB:DS Summary Summary Vaginal Delivery Method: Spontaneaous Contraception Discussed Contraception Discussed: Yes Contraceptive Plan: IUD, Infant Gender-Baby A: Male weight: 6 lb 6.118 oz Status at Discharge Functional status at discharge: independent ambulation Overall status at discharge: patient is progressing back to baseline Mental Status: mental status grossly normal Speech and Movement: speech and movement normal and speech clear Mood: congruent mood Affect: normal affect Exam Physical Exam Vital signs: Temp Pulse Resp BP Pulse Ox 97.9 F 74 18 135/82 99 02/11/21 12:30 02/11/21 12:30 02/11/21 12:30 02/11/21 12:30 02/11/21 12:30 Constitutional Constitutional: no acute distress HEENT Exam HEENT Exam: Normal Neck Exam Neck Exam: Normal Breast Exam Bilateral: Breast Exam: Normal and Soft Respiratory Exam Respiratory Exam: Normal Cardiovascular Exam Cardiovascular Exam: Normal Abdominal Exam Abdomen: Other (soft, nontender) Fundal Exam Fundus: Below Umbilicus and Firm Rectal Exam Rectal Exam: Normal Exam Perineum: Intact and Normal Extremities Exam Extremity Exam: Normal and Full ROM Back/Spine/Pelvis Exam Back Exam: Normal Skin Exam Skin Exam: Normal Neurological Exam Neurological Exam: Normal Psychiatric Exam Psychiatric Exam: Normal [facility] Medical History (Updated 02/10/21 @ 22:16 by Lashaun Pittman) 39 weeks gestation of Advanced maternal age (AMA) in Asthma Bruising History of herpes genitalis History of pre-eclampsia in prior , currently in first trimester Marginal insertion of umbilical cord affecting management of mother at 36 weeks eccentric insertion 2.5 cm from placental edge Positive test Family History Father Brain tumor at 51 Mother Psoriasis Paternal Aunt Breast cancer Paternal Cousin Breast cancer Paternal Grandmother Breast cancer Thyroid disease Paternal Uncle Thyroid disease Social History (Updated 09/30/20 @ 12:45 by Maty Denny MD) Smoking/Tobacco Use Status: Never Smoking risk assessment performed?: Yes Alcohol Intake: never Drug use: Never Substance use type: does not use Household members: spouse, children and other Details: 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 Pets and animals: Yes Do you feel safe at home: Yes Do you feel safe in your relationship?: Yes History History 4 Para 2 Hx # Term Pregnancies 2 Multiple births 0 Hx # Pregnancies 0 Ectopic pregnancies 0 AB induced 1 Hx Number of Living Children 2 AB spontaneous 0 Past Pregnancies Del. Date GA/Weeks # Outcome Route Wgt Sex Labor Lgth Anesthesia Location Prov Complic 08/06/16 38 No Successful vaginal 6 lb 4 oz Male 12 local [facility] [place] 07/08/18 40 No Successful vaginal 8 lb 4 oz Male 6 local and [place], [place] Delivery Date: 08/06/16 IOL for mild preeclampsia. No abnormal labs. jaundice. Yudy Ibrahim Delivery Date: 07/08/18 B.P. elevated post . Labs WNL. Started antihypertensive medication after delivery Yudy Ibrahim DS: Data Vitals/I&O Vitals and I&O: Vital Signs Temperature 97.9 F 02/11/21 12:30 Pulse 74 02/11/21 12:30 Pulse Rhythm Regular 02/11/21 07:35 Respiratory Rate 18 02/11/21 12:30 Blood Pressure 135/82 02/11/21 12:30 Blood Pressure Mean 99 02/11/21 12:30 Pulse Oximetry 99 02/11/21 12:30 Oxygen Delivery Method Room Air 02/10/21 21:34 Oxygen Flow Rate 0 02/10/21 21:34 Intake & Output 02/10/21 02/11/21 02/11/21 23:59 11:59 23:59 Output Total 400 / 400 1300 / 1300 Balance -400 / -400 -1300 / -1300 Output: Urine 400 / 400 1300 / 1300 Other: Urine Color Yellow Data Completed and Pending Labs on day of discharge: Labs from last 24 hours 02/11/21 02/10/21 02/10/21 06:40 20:42 20:42 WBC 12.44 H 10.81 H RBC 3.84 L 4.21 Hgb 10.7 L 11.5 Hct 32.0 L 34.9 L MCV 83.3 82.9 MCH 27.9 27.3 MCHC 33.4 33.0 RDW 12.9 12.8 Plt Count 191 223 MPV 11.5 H 11.9 H COVID-19 Source SARS-CoV-2 (PCR) Patient ABO/Rh O Positive Antibody Screen Negative 02/10/21 20:39 WBC RBC Hgb Hct MCV MCH MCHC RDW Plt Count MPV COVID-19 Source Nasal/nares SARS-CoV-2 (PCR) Negative Patient ABO/Rh Antibody Screen
== END 2021-02-11 18:00 | disposition home or self-care (01) | DRG 807 ==
PROVIDERS: Admitting Provider Advanced Practice Midwife; Visit Provider Advanced Practice Midwife
DX: O99.824 Streptococcus B carrier state complicating childbirth (principal); Z37.0 Single live birth; O71.4 Obstetric high vaginal laceration alone; Z3A.39 39 weeks gestation of pregnancy; O62.3 Precipitate labor; O36.5930 Maternal care for other known or suspected poor fetal growth, third trimester, not applicable or unspecified
CPT/HCPCS: 36415; 85027; 86850; 86900; 86901; 87635; 96368; J2590

== ENCOUNTER 2021-03-26 14:06 | Outpatient (REF) | payer BC, SELFPAY ==
--- NOTE | 2021-03-26 11:00 | PAPFT_PTH ---
PATIENT: Catrina Hodges LOC: [facility] U#:[id number] AGE/SX: 35/F ROOM: RE03/26/[address]: Marija Pittman CNM : 1985 BED: DIS: 03/26/2021 SPEC #: [id number] RECD: 03/26/21 18:14 STATUS: MARKEL REGeorgina #: [id number] PATRICIA: 03/26/21 11:[address]: Marija Pittman DEPT: [facility] Cytology RECD BY: Araseli Kulkarni Tissues: 1 - CX/ENDOCX FOR PAP SMEARS Procedures: PAP THIN PREP/UVM Screening HPV DNA PROBE Comments: [id number] (CHLAMYDIA/GC)
[2021-03-27 16:18] LABS: Chlamydia Result Negative (Negative); GC Result Negative (Negative)
== END 2021-03-26 14:07 | disposition home or self-care (01) ==
LOC: LBN 14:06
PROVIDERS: Visit Provider Advanced Practice Midwife
DX: Z11.3 Encounter for screening for infections with a predominantly sexual mode of transmission (principal); Z12.4 Encounter for screening for malignant neoplasm of cervix; Z11.51 Encounter for screening for human papillomavirus (HPV)
CPT/HCPCS: 87491; 87591; 88142; 87624

== ENCOUNTER 2021-05-11 17:24 | Emergency (ER) | payer BC, SELFPAY ==
[2021-05-11 17:30] VITALS: BP 114/73; PULSE 100; RESP 16; TEMP 36.5; O2SAT 100
[2021-05-11 18:03] LABS: Abs Immature Grans 0.02 10^3/uL (0.0-0.06); Absolute Basophil Count 0.02 10^3/uL (0.0-0.2); Absolute Eosinophil Count 0.11 10^3/uL (0.0-0.7); Absolute Lymphocyte Count 0.77 10^3/uL (1.2-3.4); Absolute Monocyte Count 0.73 10^3/uL (0.1-0.8); Absolute Neutrophil Count 4.82 10^3/uL (1.2-6.7); Basophils % 0.3; Eosinophils % 1.7; HCT 39.2 % (36.0-46.0); HGB 12.4 g/dL (11.2-15.7); Immature Grans % 0.3; Lymphocytes % 11.9; MCH 26.5 pg (27.0-33.0); MCHC 31.6 % (32.0-36.0); MCV 83.8 fL (80-95); MPV 10.7 fL (8.0-11.0); Monocytes % 11.3; Neutrophils % 74.5; Nucleated RBC 0 %; Platelet Count 204 10^3/uL (130-400); RBC 4.68 10^6/uL (3.93-5.22); RDW 13.6 % (11.7-14.6); RDW-SD 41.8 fL; WBC 6.47 10^3/uL (4.4-10.8)
[2021-05-11 18:11] LABS: Lipase 96 U/L (73-393)
[2021-05-11 18:14] LABS: ALT 24 U/L (14-59); AST 20 U/L (15-37); Albumin 3.5 g/dL (3.4-5.0); Alkaline Phosphatase 56 U/L (46-116); Anion Gap 9.7 mmol/L (3-11); BUN 12 mg/dL (7-18); Bilirubin, Total 0.7 mg/dL (0.2-1.0); CO2 25.3 mmol/L (21.0-32.0); CREATININE 0.6 mg/dL (0.55-1.02); Calcium 8.2 mg/dL (8.5-10.1); Chloride 104 mmol/L (98-107); Glucose 101 mg/dL (74-106); Potassium 3.3 mmol/L (3.5-5.1); Sodium 139 mmol/L (136-145); Total Protein 6.7 g/dL (6.4-8.2)
--- NOTE | 2021-05-11 18:15 | ED.GENADUL_ITS ---
Discharge Plan Disposition Patient Disposition: HOME Condition: Improving Discharge Details Clinical Impression: Nausea, vomiting, and diarrhea Primary Care Provider: Unknown,Unknown ED Provider: Francesca Kahn Home Meds and New Rx's Prescriptions: New ondansetron 4 mg tablet,disintegrating 4 mg PO TID PRN (Reason: nausea and vomiting) Qty: 6 RF: 0 Continued Pulmicort Flexhaler 90 mcg/actuation aerosol powdr breath activated 1 inh inhalation BID PRNRF: 0 prenat.vits,cris,[id number] Tablet 1 tab PO DAILY RF: 0 Dena 14 mcg/24 hrs (3 yrs) 13.5 mg intrauterine device 1 device intrauterine ONCE RF: 0 Discharge Instructions Instructions: Acute Nausea and Vomiting (ED), Acute Diarrhea (ED) Additional Instructions: Drink plenty of fluids and get plenty of rest. Your blood work was reassuring today. Your urinalysis was negative for a bladder infection. Your symptoms may be due to a viral illness. A prescription for Zofran for your nausea and vomiting has been sent electronically to your pharmacy. You were also given Zofran to go for home to take as needed and directed for nausea and vomiting. You can take [id number] Imodium as needed and directed for your diarrhea. You can also take [id number] Pepcid or Prilosec as needed for epigastric pain or acid indigestion. Your potassium was slightly low today. You can supplement potassium in your diet with bananas, spinach, kale, tomatoes, garlic, etc. Follow-up with your primary care doctor in 1 week. Return to the emergency department with any worsening or new concerning symptoms. Discharge Data Discharge Date/Time-TO BE ENTERED AT DEPARTURE: 05/11/21 20:29 Discharge Physician: Francesca Kahn Medical Decision Making 35yo F who presents to the ED with vomiting, diarrhea and epigastric abdominal pain since last night. She admits to a temp of 101 tympanic today. Temp 97.7 on arrival. She appears fatigued but. Normal oropharynx. Lungs clear. Abdomen soft and nontender. No meningeal signs. Differential diagnosis includes gastroenteritis, colitis, UTI, viral syndrome. Will place an IV, bolus IV fluids, screening labs, urinalysis, IV Tylenol, IV Toradol, GI cocktail, Pepcid, Zofran and obtain rapid Covid and reassess. Labs reviewed. Normal white blood cell count. Potassium 3.3, repleted. Urinalysis notes ketones but no evidence of infection. Covid negative. Patient reassessed and she feels much better. She was given 2 L of IV fluids and able to tolerate p.o. without any further nausea, vomiting or pain. Kite good to go home. She was given Zofran to go and prescription sent electronically to her pharmacy. Advised to follow up with the primary care doctor for re-evaluation. Usual and customary return precautions given prior to discharge. Medical Records Medical records reviewed: Yes I reviewed the patient's medical records. Lab Data Lab results reviewed: Yes I reviewed the patient's lab results. Labs: Laboratory Tests Range/Units 05/11/21 05/11/21 05/11/21 17:50 17:50 17:50 WBC (4.4-10.8) 10^3/uL 6.47 RBC (3.93-5.22) 10^6/uL 4.68 Hgb (11.2-15.7) g/dL 12.4 Hct (36.0-46.0) % 39.2 MCV (80-95) fL 83.8 MCH (27.0-33.0) pg 26.5 L MCHC (32.0-36.0) % 31.6 L RDW (11.7-14.6) % 13.6 Plt Count (130-400) 10^3/uL 204 MPV (8.0-11.0) fL 10.7 Immature Gran % 0.3 Neutrophils % 74.5 Lymphocytes % 11.9 Monocytes % 11.3 Eosinophils % 1.7 Basophils % 0.3 Nucleated RBC % % 0 Absolute Neutrophils (1.2-6.7) 10^3/uL 4.82 Absolute Lymphocytes (1.2-3.4) 10^3/uL 0.77 L Absolute Monocytes (0.1-0.8) 10^3/uL 0.73 Absolute Eosinophils (0.0-0.7) 10^3/uL 0.11 Absolute Basophils (0.0-0.2) 10^3/uL 0.02 Sodium (136-145) mmol/L 139 Potassium (3.5-5.1) mmol/L 3.3 L Chloride (98-107) mmol/L 104 Carbon Dioxide (21.0-32.0) mmol/L 25.3 Anion Gap (3-11) mmol/L 9.7 BUN (7-18) mg/dL 12 Creatinine (0.55-1.02) mg/dL 0.6 Estimated GFR/1.73 m2 (mL/min/1.73m2) >= 60.00 Glucose (74-106) mg/dL 101 Calcium (8.5-10.1) mg/dL 8.2 L Total Bilirubin (0.2-1.0) mg/dL 0.7 AST (15-37) U/L 20 ALT (14-59) U/L 24 Alkaline Phosphatase (46-116) U/L 56 Total Protein (6.4-8.2) g/dL 6.7 Albumin (3.4-5.0) g/dL 3.5 Lipase (73-393) U/L 96 Urine Color (Yellow) Urine Clarity (Clear) Urine pH (5-8) Ur Specific [place] (1.005-1.025) Urine Protein (Negative) mg/dL Urine Ketones (Negative) mg/dL Urine Blood (Negative) Urine Nitrite (Negative) Urine Bilirubin (Negative) Urine Urobilinogen (Up TO 0.2) EU/dL Ur Leukocyte Esterase (Negative) Urine RBC (0-2) HPF Urine WBC (0-5) HPF Ur Epithelial Cells (Negative) HPF Urine Crystals (Negative) HPF Urine Bacteria (Negative) HPF Urine Casts (Negative) LPF Urine Mucus (Negative) Ur Culture Indicated? Urine Glucose (Negative) mg/dL COVID-19 Source SARS-CoV-2 (PCR) (Negative) Range/Units 05/11/21 05/11/21 18:35 19:32 WBC (4.4-10.8) 10^3/uL RBC (3.93-5.22) 10^6/uL Hgb (11.2-15.7) g/dL Hct (36.0-46.0) % MCV (80-95) fL MCH (27.0-33.0) pg MCHC (32.0-36.0) % RDW (11.7-14.6) % Plt Count (130-400) 10^3/uL MPV (8.0-11.0) fL Immature Gran % Neutrophils % Lymphocytes % Monocytes % Eosinophils % Basophils % Nucleated RBC % % Absolute Neutrophils (1.2-6.7) 10^3/uL Absolute Lymphocytes (1.2-3.4) 10^3/uL Absolute Monocytes (0.1-0.8) 10^3/uL Absolute Eosinophils (0.0-0.7) 10^3/uL Absolute Basophils (0.0-0.2) 10^3/uL Sodium (136-145) mmol/L Potassium (3.5-5.1) mmol/L Chloride (98-107) mmol/L Carbon Dioxide (21.0-32.0) mmol/L Anion Gap (3-11) mmol/L BUN (7-18) mg/dL Creatinine (0.55-1.02) mg/dL Estimated GFR/1.73 m2 (mL/min/1.73m2) Glucose (74-106) mg/dL Calcium (8.5-10.1) mg/dL Total Bilirubin (0.2-1.0) mg/dL AST (15-37) U/L ALT (14-59) U/L Alkaline Phosphatase (46-116) U/L Total Protein (6.4-8.2) g/dL Albumin (3.4-5.0) g/dL Lipase (73-393) U/L Urine Color (Yellow) Yellow Urine Clarity (Clear) Clear Urine pH (5-8) 6.0 Ur Specific [place] (1.005-1.025) 1.010 Urine Protein (Negative) mg/dL Negative Urine Ketones (Negative) mg/dL 40 H Urine Blood (Negative) Trace-lysed H Urine Nitrite (Negative) Negative Urine Bilirubin (Negative) Negative Urine Urobilinogen (Up TO 0.2) EU/dL 0.2 Ur Leukocyte Esterase (Negative) Negative Urine RBC (0-2) HPF 0-2 Urine WBC (0-5) HPF 0-2 Ur Epithelial Cells (Negative) HPF Few Urine Crystals (Negative) HPF Negative Urine Bacteria (Negative) HPF Negative Urine Casts (Negative) LPF Negative Urine Mucus (Negative) Negative Ur Culture Indicated? No Urine Glucose (Negative) mg/dL Negative COVID-19 Source Nasal/Nares SARS-CoV-2 (PCR) (Negative) Negative HPI General Mode of arrival: ambulatory . Date/Time Provider Initiated Documentation: 05/11/21 17:42 . Limitations to Documentation: no limitations . Information obtained by: patient . HPI Narrative: Pt is a 35 yo F who presents to the ED with a complaint of vomiting and diarrhea since last night. She states she vomited twice last night which was mainly food and vomited today once just prior to arrival which is mainly clear and fall pain. She states she had 3 episodes of watery brown diarrhea last night but none today. She states she has had intermittent sharp epigastric abdominal pain that had resolved after episodes of vomiting and denies any pain at present. She states she is fully vaccinated and denies any known exposures to Covid. She states she had a temp of 97 last night and a temp of 101 today. She denies any recent travel, recent antibiotics, recent known exposures, or recent known sick contacts. She has 3 children at home and states they have not been sick recently. She denies any cough, chest pain, shortness of breath, urinary symptoms, rash, neck pain. She does admit to some headache today although she states she has not been able to eat or drink anything. Related Data Home Medications Medication Instructions Recorded Confirmed prenat.vits,cris,[id number] 1 tab PO DAILY 07/16/20 05/11/21 budesonide 90 mcg/actuation breath 1 inh INHALATION BID PRN 11/18/20 05/11/21 activated powder inhaler levonorgestrel 14 mcg/24 hrs (3 1 device INTRAUTERINE ONCE 03/26/21 05/11/21 yrs) 13.5 mg intrauterine device ondansetron 4 mg PO TID PRN #6 tab 05/11/21 Previous Rx's Medication Instructions Recorded ondansetron 4 mg PO TID PRN #6 tab 05/11/21 Allergies Allergy/AdvReac Type Severity Reaction Status Date / Time epinephrine Allergy Severe Wheezing Verified 05/11/21 17:33 General Stated Complaint: GenMedical SAMINA: 3 Review of Systems All systems reviewed & are unremarkable except as noted in HPI and below Constitutional Constitutional: Reports as per HPI, Denies chills and Denies fever(s) Eyes Eyes: Denies blurry vision ENT Ears, Nose, Mouth, and Throat: Denies dizziness, Denies sore throat and Denies throat swelling Cardiovascular Cardiovascular: Denies chest pain and Denies dyspnea Respiratory Respiratory: Denies cough and Denies dyspnea Gastrointestinal Gastrointestinal: Reports abdominal pain, Reports diarrhea and Reports vomiting Genitourinary Genitourinary: Denies hematuria and Denies dysuria Musculoskeletal Musculoskeletal: Denies back pain and Denies numbness Integumentary/Breasts Skin/Breast: Denies lesions and Denies rash Neurologic Neurologic: Denies dizziness, Denies localized weakness and Denies numbness Allergic/Immunologic Allergic/Immunologic: Denies throat swelling [facility] Medical History (Updated 05/11/21 @ 20:15 by Francesca Kahn DO) 39 weeks gestation of Advanced maternal age (AMA) in Advanced maternal age in multigravida Asthma Bruising History of herpes genitalis History of pre-eclampsia in prior , currently in first trimester Marginal insertion of umbilical cord affecting management of mother at 36 weeks eccentric insertion 2.5 cm from placental edge Positive test Family History Father Brain tumor at 51 Mother Psoriasis Paternal Aunt Breast cancer Paternal Cousin Breast cancer Paternal Grandmother Breast cancer Thyroid disease Paternal Uncle Thyroid disease Social History (Updated 09/30/20 @ 12:45 by Maty Denny MD) Smoking/Tobacco Use Status: Never Smoking risk assessment performed?: Yes Alcohol Intake: current Alcohol Intake frequency: holidays/special occasions only Drug use: Never Substance use type: does not use Household members: spouse, children and other Details: 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 Pets and animals: Yes Do you feel safe at home: Yes Do you feel safe in your relationship?: Yes History History 4 Para 3 Hx # Term Pregnancies 3 Multiple births 0 Hx # Pregnancies 0 Ectopic pregnancies 0 AB induced 1 Hx Number of Living Children 3 AB spontaneous 0 Past Pregnancies Del. Date GA/Weeks # Outcome Route Wgt Sex Labor Lgth Anesthes ia Location Prov Complic 08/06/16 38 No Successful vaginal 2834.952 g Male 12 local [facility] 07/08/18 40 No Successful vaginal 3742.137 g Male 6 local [facility] [place] [place] 02/10/21 39 No Successful vaginal Male less than 3 hours/prec ipitous OLRENA Engel Delivery Date: 08/06/16 IOL for mild preeclampsia. No abnormal labs. jaundice. Yudy Ibrahim Delivery Date: 07/08/18 B.P. elevated post . Labs WNL. Started antihypertensive medication after delivery Yudy Ibrahim Delivery Date: 02/10/21 No notes to display Exam Const General: cooperative, healthy appearing and no acute distress [facility] Head: normal to inspection Face and sinus: normal facial exam Eyes General: appearance normal, both eyes and all related structures EOM: EOM intact bilaterally Neck Neck: normal visual inspection and No submandibular swelling Lymphatic: no lymphadenopathy noted Chest Chest: normal inspection of the chest and no tenderness Resp Effort & Inspection: normal respiratory effort and able to speak in complete sentences Auscultation: clear to auscultation bilaterally Cardio Rate: regular rate Rhythm: regular rhythm GI Inspection: normal to inspection Palpation: soft, not firm, not rigid and nontender Auscultation: normal bowel sounds Skin General skin exam: no rashes or lesions noted Neuro General: patient alert, patient awake, patient oriented x3, moves all extremities and no meningeal signs Cognition: normal cognition Speech: speech normal Motor: muscle tone normal throughout Sensory Exam: no sensory deficits noted Extrem General: normal to inspection, full ROM, capillary refill normal, no calf tenderness bilaterally and no edema Psych Appearance: grossly normal Mental Status: mental status grossly normal Speech and Movement: speech and movement normal Affect: normal affect Course Vital Signs Vital signs: Vital Signs Temperature 97.7 F 05/11/21 17:30 Pulse 100 H 05/11/21 17:30 Respiratory Rate 16 05/11/21 17:30 Blood Pressure 114/73 05/11/21 17:30 Pulse Oximetry 100 05/11/21 17:30 Temperature 97.7 F 05/11/21 17:30 Temperature Source Skin 05/11/21 17:30 Pulse 100 H 05/11/21 17:30 Respiratory Rate 16 05/11/21 17:30 Respiratory Effort Non-Labored 05/11/21 17:36 Respiratory Depth Normal 05/11/21 17:36 Respiratory Pattern Normal 05/11/21 17:36 Blood Pressure 114/73 05/11/21 17:30 Blood Pressure Position Supine 05/11/21 17:30 Pulse Oximetry 100 05/11/21 17:30 Oxygen Delivery Method Room Air 05/11/21 17:30 Oxygen Flow Rate 0 05/11/21 17:30 Pain Level 4 05/11/21 17:30 Comment 05/11/21 17:30 Lab/Test Results Lab/Test Results: Laboratory Tests Range/Units 05/11/21 05/11/21 05/11/21 17:50 17:50 17:50 WBC (4.4-10.8) 10^3/uL 6.47 RBC (3.93-5.22) 10^6/uL 4.68 Hgb (11.2-15.7) g/dL 12.4 Hct (36.0-46.0) % 39.2 MCV (80-95) fL 83.8 MCH (27.0-33.0) pg 26.5 L MCHC (32.0-36.0) % 31.6 L RDW (11.7-14.6) % 13.6 Plt Count (130-400) 10^3/uL 204 MPV (8.0-11.0) fL 10.7 Immature Gran % 0.3 Neutrophils % 74.5 Lymphocytes % 11.9 Monocytes % 11.3 Eosinophils % 1.7 Basophils % 0.3 Nucleated RBC % % 0 Absolute Neutrophils (1.2-6.7) 10^3/uL 4.82 Absolute Lymphocytes (1.2-3.4) 10^3/uL 0.77 L Absolute Monocytes (0.1-0.8) 10^3/uL 0.73 Absolute Eosinophils (0.0-0.7) 10^3/uL 0.11 Absolute Basophils (0.0-0.2) 10^3/uL 0.02 Sodium (136-145) mmol/L 139 Potassium (3.5-5.1) mmol/L 3.3 L Chloride (98-107) mmol/L 104 Carbon Dioxide (21.0-32.0) mmol/L 25.3 Anion Gap (3-11) mmol/L 9.7 BUN (7-18) mg/dL 12 Creatinine (0.55-1.02) mg/dL 0.6 Estimated GFR/1.73 m2 (mL/min/1.73m2) >= 60.00 Glucose (74-106) mg/dL 101 Calcium (8.5-10.1) mg/dL 8.2 L Total Bilirubin (0.2-1.0) mg/dL 0.7 AST (15-37) U/L 20 ALT (14-59) U/L 24 Alkaline Phosphatase (46-116) U/L 56 Total Protein (6.4-8.2) g/dL 6.7 Albumin (3.4-5.0) g/dL 3.5 Lipase (73-393) U/L 96
[2021-05-11 18:22] VITALS: TEMP 36.9
[2021-05-11] MEDS: Ondansetron 4 MG/2 ML VIAL IVP (18:37)
[2021-05-11] MEDS: FAMOTIDINE 20 MG/50 ML BAG 200 MG IVPB (18:38)
[2021-05-11] MEDS: ACETAMINOPHEN 1,000 MG/100 ML BTL 400 MG IVPB (18:38)
[2021-05-11] MEDS: Ketorolac 30 MG/ML VIAL IVP (18:38)
[2021-05-11 18:54] LABS: Source Nasal/Nares
[2021-05-11] MEDS: Normal Saline 1,000 ML 1000 ML IV ×2 (19:15→19:30)
[2021-05-11 19:30] VITALS: TEMP 36.2
[2021-05-11] MEDS: Potassium Chloride 20 MEQ TABCR 40 MEQ PO (19:30)
[2021-05-11 19:36] LABS: Bilirubin Negative (Negative); Blood Trace-lysed (Negative); Clarity Clear (Clear); Glucose Negative (Negative); Ketones 40 mg/dL (Negative); Leukocyte Esterase Negative (Negative); Nitrite Negative (Negative); Urobilinogen 0.2 EU/dL (Up TO 0.2)
[2021-05-11 19:38] VITALS: BP 116/64; PULSE 85; RESP 17; TEMP 36.8; O2SAT 98
[2021-05-11 19:44] LABS: Bacteria Negative HPF (Negative); C & S Indicated? No; Casts Negative LPF (Negative); Crystals Negative HPF (Negative); Epithelial Cells Few HPF (Negative); Mucus Negative (Negative); RBC 0-2 HPF (0-2); WBC 0-2 HPF (0-5)
[2021-05-11 20:11] LABS: COVID-19 PCR Negative (Negative)
[2021-05-11] MEDS: Ondansetron O.D.T. 4 MG TABEF, 3 TABS/BTL PO (20:31)
== END 2021-05-11 20:29 | disposition home or self-care (01) ==
PROVIDERS: Emergency Provider Physician Assistant
DX: R11.2 Nausea with vomiting, unspecified (principal); R19.7 Diarrhea, unspecified; E87.6 Hypokalemia
CPT/HCPCS: 80053; 81025; 83690; 87635; 96361; 96374; 96375; 99284; 81003; 81015; 85025; J0131; J1885; J2405

== ENCOUNTER 2022-03-10 02:24 | Outpatient (CLI) | payer BC, SELFPAY | END 2022-03-10 02:25 | disposition home or self-care (01) | LOC: LBO 02:24 | DX: Z77.011 Contact with and (suspected) exposure to lead (principal) | CPT/HCPCS: 36415; 83655 ==

== ENCOUNTER 2022-11-03 09:14 | Outpatient (REF) | payer BC, SELFPAY ==
[2022-11-03 16:16] LABS: Abs Immature Grans 0.01 10^3/uL (0.0-0.06); Absolute Basophil Count 0.01 10^3/uL (0.0-0.2); Absolute Lymphocyte Count 2.03 10^3/uL (1.2-3.4); Absolute Monocyte Count 0.42 10^3/uL (0.1-0.8); Absolute Neutrophil Count 2.16 10^3/uL (1.2-6.7); Basophils % 0.2; Eosinophils % 6.1; HCT 40.4 % (36.0-46.0); HGB 13.2 g/dL (11.2-15.7); Immature Grans % 0.2; Lymphocytes % 41.2; MCH 28.5 pg (27.0-33.0); MCHC 32.7 % (32.0-36.0); MCV 87 fL (80-95); MPV 11.4 fL (8.0-11.0); Monocytes % 8.5; Neutrophils % 43.8; Platelet Count 223 10^3/uL (130-400); RBC 4.63 10^6/uL (3.93-5.22); RDW 13.3 % (11.7-14.6); RDW-SD 42.5 fL; WBC 4.93 10^3/uL (4.4-10.8)
[2022-11-03 16:25] LABS: Iron 170 ug/dL (50-170); Total Iron Binding Capacity 265 ug/dL (250-450); Transferrin Sat 64 % (15-50)
[2022-11-03 16:36] LABS: ALT 21 U/L (14-59); AST 20 U/L (15-37); Albumin 3.7 g/dL (3.4-5.0); Alkaline Phosphatase 47 U/L (46-116); Anion Gap 7.5 mmol/L (3-11); BUN 9 mg/dL (7-18); Bilirubin, Total 0.7 mg/dL (0.2-1.0); CO2 28.5 mmol/L (21.0-32.0); CREATININE 0.5 mg/dL (0.55-1.02); Calcium 8.9 mg/dL (8.5-10.1); Chloride 103 mmol/L (98-107); Cholesterol 161 mg/dL (<200); Estimated GFR 123.04 (mL/min/1.73m2); Glucose 85 mg/dL (74-106); HDL Cholesterol 116 mg/dL (40-60); Potassium 3.9 mmol/L (3.5-5.1); Sodium 139 mmol/L (136-145); TSH (W/Ref FT4) 1.14 uIU/mL (0.36-3.74); Total Protein 6.6 g/dL (6.4-8.2)
[2022-11-03 16:39] LABS: Triglyceride < 25 mg/dL (<150)
== END 2022-11-03 09:15 | disposition home or self-care (01) ==
LOC: NCHCN 09:14
PROVIDERS: Visit Provider Nurse Practitioner Family
DX: Z13.29 Encounter for screening for other suspected endocrine disorder (principal); Z13.220 Encounter for screening for lipoid disorders; Z86.2 Personal history of diseases of the blood and blood-forming organs and certain disorders involving the immune mechanism; Z13.228 Encounter for screening for other metabolic disorders
CPT/HCPCS: 80053; 80061; 83540; 83550; 84443; 85025

== ENCOUNTER 2022-11-15 16:44 | Outpatient (REF) | payer BC, SELFPAY | END 2022-11-15 16:45 | disposition home or self-care (01) | LOC: NCHCN 16:44 | PROVIDERS: PCP Nurse Practitioner Family; Visit Provider Nurse Practitioner Family | DX: R30.0 Dysuria (principal); R31.9 Hematuria, unspecified | CPT/HCPCS: 87086 ==

== ENCOUNTER 2022-12-01 01:53 | Outpatient (CLI) | payer BC, SELFPAY ==
--- NOTE | 2022-12-01 12:50 | DI.MAMMO_ITS ---
Exam(s) MAMMO SCREENING EXAM: MAMMO SCREENING CLINICAL HISTORY: SCREENING, Z12.39, FAMILY H/O BREAST CA, Z80.3 TECHNIQUE: Mammograms were interpreted according to the usual protocol including computer analysis w [employer] CAD system, tomosynthesis and C-view imaging. COMPARISON: None. Baseline examination. FINDINGS: The breasts are composed of heterogeneously dense fibroglandular densities, Breast Density category C . No suspicious masses or suspicious microcalcifications are seen. No skin thickening or abnormal axillary lymph nodes are seen. IMPRESSION: BI-RADS Category 1, Negative mammogram. Yearly screening mammography is recommended. Breast Density Category C, heterogeneously Dense. The mammogram demonstrates the patient's breast tissue is dense. Dense breast tissue is very common a nd is not abnormal but dense breast tissue can make it harder to find cancer on a mammogram. Also, de nse breast tissue may increase breast cancer risk. This information about the result of the mammogram report was provided to the patient to raise their awareness. Use this report when you speak with the patient about their risks for breast cancer, which includes their family history. At that time, you may recommend additional screening tests (Ultrasound or MRI) as they might be useful based on their r isk. A negative radiographic report should not delay biopsy if a dominant or clinically suspicious mass is present. Up to ten percent of cancers are not identified on mammography. A negative report may reinforce clinical impression. Adenosis and dense breasts may obscure an underlying neoplasm. False positive reports average 6 to 10%.
== END 2022-12-01 02:13 ==
LOC: DI 01:54
PROVIDERS: PCP Nurse Practitioner Family; Visit Provider Nurse Practitioner Family
DX: Z12.31 Encounter for screening mammogram for malignant neoplasm of breast (principal); Z80.3 Family history of malignant neoplasm of breast
CPT/HCPCS: 77063; 77067

== ENCOUNTER 2023-10-31 11:44 | Outpatient (REF) | payer BC, SELFPAY ==
[2023-10-31 15:59] LABS: Abs Immature Grans 0.01 10^3/uL (0.0-0.06); Absolute Basophil Count 0.02 10^3/uL (0.0-0.2); Absolute Eosinophil Count 0.17 10^3/uL (0.0-0.7); Absolute Lymphocyte Count 1.88 10^3/uL (1.2-3.4); Basophils % 0.4; Eosinophils % 3.5; HCT 39.9 % (36.0-46.0); HGB 13.2 g/dL (11.2-15.7); Immature Grans % 0.2; Lymphocytes % 38.5; MCH 28.7 pg (27.0-33.0); MCHC 33.1 % (32.0-36.0); MCV 87 fL (80-95); MPV 11.7 fL (8.0-11.0); Monocytes % 8.2; Neutrophils % 49.2; Platelet Count 229 10^3/uL (130-400); RDW-SD 41.1 fL; WBC 4.88 10^3/uL (4.4-10.8)
[2023-10-31 16:24] LABS: Iron 118 ug/dL (50-170); Total Iron Binding Capacity 282 ug/dL (250-450); Transferrin Sat 42 % (15-50)
[2023-10-31 16:34] LABS: ALT 26 U/L (14-59); AST 22 U/L (15-37); Albumin 3.8 g/dL (3.4-5.0); Alkaline Phosphatase 44 U/L (46-116); BUN 13 mg/dL (7-18); Bilirubin, Total 0.5 mg/dL (0.2-1.0); CREATININE 0.5 mg/dL (0.55-1.02); Calcium 8.8 mg/dL (8.5-10.1); Chloride 106 mmol/L (98-107); Estimated GFR 122.28 (mL/min/1.73m2); FREE T4 0.91 ng/dL (0.76-1.46); Glucose 88 mg/dL (74-106); Potassium 4.2 mmol/L (3.5-5.1); Sodium 141 mmol/L (136-145); TSH 1.78 uIU/mL (0.36-3.74); Total Protein 6.7 g/dL (6.4-8.2)
[2023-10-31 17:15] LABS: Hemoglobin A1C 4.9 % (<5.7)
[2023-10-31 17:21] LABS: Calculated LDL 53 mg/dL (<100); Cholesterol 177 mg/dL (<200); Ferritin 31 ng/mL (8-252); HDL Cholesterol 118 mg/dL (40-60); Triglyceride 31 mg/dL (<150)
[2023-11-01 09:46] LABS: HIV-1/2 Ag & Ab Screen Negative (Negative)
[2023-11-01 10:32] LABS: Syphilis Serology (RPR) Negative (Negative)
[2023-11-01 11:12] LABS: Hepatitis C Ab w Rflx HCV PCR Negative (Negative)
[2023-11-01 14:58] LABS: Chlamydia Result Negative (Negative); GC Result Negative (Negative)
== END 2023-10-31 11:45 | disposition home or self-care (01) ==
LOC: NCHCN 11:44
PROVIDERS: PCP Nurse Practitioner Family; Visit Provider Nurse Practitioner Family
DX: Z00.00 Encounter for general adult medical examination without abnormal findings (principal); Z13.220 Encounter for screening for lipoid disorders; Z13.1 Encounter for screening for diabetes mellitus; Z11.59 Encounter for screening for other viral diseases; Z11.4 Encounter for screening for human immunodeficiency virus [HIV]; Z11.3 Encounter for screening for infections with a predominantly sexual mode of transmission; Z86.39 Personal history of other endocrine, nutritional and metabolic disease
CPT/HCPCS: 80053; 80061; 86803; 87389; 87491; 87591; 82728; 83036; 83540; 83550; 84439; 84443; 85025; 86592

== ENCOUNTER 2024-07-27 11:36 | Outpatient (CLI) | payer BC, SELFPAY ==
--- NOTE | 2024-07-27 | DI.RAD_ITS ---
Exam(s) XR RIBS RT W PA LAT CHEST CLINICAL HISTORY: PERSISTENT CHRONIC COUGH, R05.3, RIB PAIN, R07.81, PLEURODYNIA. COMPARISON: CR RIGHT SHOULDER COMPLETE from 06/30/2013 CR RIGHT SHOULDER COMP POST REDUC from 06/30/2013 TECHNIQUE:: PA and lateral views of the chest and four views of the right ribs were performed. FINDINGS: LUNGS:Mild linear density seen in the lingula. Additional streaky linear density seen posterior left lower lobe. Findings right represent scarring versus atelectasis however acute infiltration not exc luded. Right lung appears clear. No pleural abnormality seen. HEART: Normal. MEDIASTINUM: Normal. BONES: No displaced rib fracture is seen. No bony destructive lesion is seen. OTHER FINDINGS: None. IMPRESSION: 1. Unremarkable radiographic appearance of the right ribs. 2. Streaky densities in the lingula and left lower lobe may represent atelectasis, scarring versus ac [place] infiltrates.
== END 2024-07-27 11:56 ==
PROVIDERS: Visit Provider Physician Assistant Medical
DX: R91.8 Other nonspecific abnormal finding of lung field (principal); R05.3 Chronic cough; R07.81 Pleurodynia
CPT/HCPCS: 71046; 71100

== ENCOUNTER 2024-10-31 20:16 | Emergency (ER) | payer BC, SELFPAY ==
[2024-10-31 20:19] VITALS: BP 127/78; PULSE 115; RESP 16; TEMP 36.7; O2SAT 98
[2024-10-31 20:23] VITALS: BP 127/78; PULSE 115; RESP 16; TEMP 36.7; O2SAT 98
--- NOTE | 2024-10-31 20:25 | ED.GENADUL_ITS ---
Discharge Plan Disposition Patient Disposition: Home Condition: Stable Discharge Details Clinical Impression: Pneumonia due to influenza A virus Primary Care Provider: Precious Jordan ED Provider: Roverto Machado Home Meds and New Rx's Prescriptions: Continued Pulmicort Flexhaler 90 mcg/actuation aerosol powdr breath activated 1 inh inhalation BID PRN prenat.vits,cris,frr-xper-cfhmh Tablet 1 tab PO DAILY cholecalciferol (vitamin D3) 10 mcg (400 unit) capsule 10 mcg PO DAILY Discharge Instructions Instructions: Flu, Adult ED Additional Instructions: You were seen in the emergency department for your influenza infection. Please continue zotl-fqd-bdrcguw cold medicines, please use therapeutic dosing of Tylenol (acetamenophen) & Advil (ibuprofen) in an alternating fashion as follows: Take 1000mg of Tylenol every 6 hours without missing doses- that is 4 times per day. Peever in between the Tylenol dosings, take 400-600mg of Advil also on a 6 hour schedule, that is also 4 times per day. The daily maximum dosing of Tylenol is 4000mg, and the daily maximum dosing of Advil is 2400mg. This is safe to do for weeks. Please note that some common cold medications & prescription pain medications may contain acetamenophen and you need to read OTC drug labels and factor that in to maximum daily dosings. Please return for any severe acute worsening of your respiratory status, or any other emergent concern Referrals: Precious Jordan [Primary Care Provider] - Discharge Data Discharge Date/Time-TO BE ENTERED AT DEPARTURE: 10/31/24 21:55 HPI General Date/Time Provider Initiated Documentation: 10/31/24 20:24 . HPI Narrative: 39 year-old female presents to ED today by POV/ambulating with a chief complaint of intermittent fevers, cough, body aches, L hand tingling along ulnar aspect with onset about one week ago. Quality described as generalized malaise, no radiation to chest pain, respiratory distress, nausea/vomiting, dysuria, diarrhea, profound lethargy, syncope. Severity is described as moderate. Palliating factors include nothing specific attempted beyond OTC cold medicines. Provoking factors include nothing specific. Events leading up to the incident/Associated Symptoms: Patient did not receive flu shot this year. Patient not anticoagulated. Related Data Home Medications ?Medication ?Instructions ?Recorded ?Confirmed prenat.vits,cris,ulq-uhzt-mpimn 1 tab PO DAILY 07/16/20 10/31/24 budesonide 90 mcg/actuation breath 1 inh inhalation BID PRN 11/18/20 10/31/24 activated powder inhaler (Pulmicort Flexhaler) cholecalciferol (vitamin D3) 10 10 mcg PO DAILY 04/07/22 10/31/24 mcg (400 unit) capsule Allergies Allergy/AdvReac Type Severity Reaction Status Date / Time epinephrine Allergy Severe Wheezing Verified 10/31/24 20:23 General Stated Complaint: RespSymp SAMINA: 4 Review of Systems All systems reviewed & are unremarkable except as noted in HPI and below Exam Narrative Exam Narrative: GENERAL APPEARANCE: Well-nourished, non-toxic, awake and alert, atraumatic, no acute distress. SKIN: Warm, pink, dry, intact, without rashes/lesions/ulcerations. HEAD: Normocephalic, atraumatic, normal hair distribution for gender/age. EYES: Normal conjunctiva, no exudates on lids/lashes. ENT: Nares patent, no circumoral cyanosis, no facial swelling NECK: Supple, trachea midline, painless cervical ROM. LUNGS/CHEST: Lungs CTA bilaterally- no rhonchi/rales/wheezes diffusely, non- labored respirations, normal A/P diameter, symmetrical expansion, no chest wall deformity HEART (CV/PV): Regular rate and rhythm without murmur, no peripheral edema, no JVD. ABDOMEN: Soft, non-distended, no guarding. MSK: Normal ROM, no swelling/deformity to bilateral UEs or LEs, moving all extremities without weakness, no cyanosis, spine midline without tenderness, normal curvature, positive Tinel's test at medial cubital tunnel of left upper extremity, Phalen's positive in left upper extremity NEURO: Mental Status AAOx4 - alert to person, place, time, events No facial droop, no forehead involvement. Motor: No focal weakness - strength 5/5 in bilateral UEs and LEs, proximal and distal, symmetric. Sensory: sensation intact to light touch globally. Gait normal: patient ambulated without ataxia into ED room. PSYCH: euthymic, cooperative, pleasant, appropriate speech Course Vital Signs Vital signs: Vital Signs Temperature 36.7 C 10/31/24 20:19 Pulse 115 H 10/31/24 20:19 Respiratory Rate 16 10/31/24 20:19 Blood Pressure 127/78 10/31/24 20:19 Pulse Oximetry 98 10/31/24 20:19 Temperature 36.7 C 10/31/24 20:23 Pulse 115 H 10/31/24 20:23 Respiratory Rate 16 10/31/24 20:23 Blood Pressure 127/78 10/31/24 20:23 Pulse Oximetry 98 10/31/24 20:23 Oxygen Delivery Method Room Air 10/31/24 20:23 Oxygen Flow Rate 0 10/31/24 20:23 Pain Level 3 10/31/24 20:23 Medical Decision Making This dictation utilizes [id number]-wf-[id number] dictation software and may contain u nedited grammatical errors. 39 year-old female presents to ED today by POV/ambulating with a chief complaint of intermittent fevers, cough, body aches, L hand tingling along ulnar aspect with onset about one week ago. Quality described as generalized malaise, no radiation to chest pain, respiratory distress, nausea/vomiting, dysuria, diarrhea, profound lethargy, syncope. Severity is described as moderate. Palliating factors include nothing specific attempted beyond OTC cold medicines. Provoking factors include nothing specific. Events leading up to the incident/Associated Symptoms: Patient did not receive flu shot this year. Patients' medical history: Asthma. Family and social history: No recent travel. Pertinent exam findings / vital signs include lungs CTA, stable vitals without respiratory distress, positive Barton's test at cubital tunnel, Phalen's positive left upper extremity Differential / pathologies of concern include viral syndrome, pneumonia. Diagnostic studies of: -COVID/flu/RSV PCR, CXR -PCR swab positive for influenza A -CXR shows inferior left lower lobe infiltrate Interventions of: -None, recommend conservative management, outside window for Tamiflu, do not feel this is bacterial pneumonia superimposed on influenza A infection. ED Course/Assessment/Plan: 39-year-old female presents with 1 week of viral respiratory infection symptoms and bodyaches with intermittent fevers, I counseled her on adequate use of Tylenol and ibuprofen. Likely has tennis elbow of left upper extremity, counseled on neoprene sleeve for elbow immobilization, I counseled her on influenza A positive result Findings not consistent with respiratory distress, superimposed bacterial pneumonia. Disposition of pneumonia due to influenza A virus. Patient verbalized understanding of the plan and return to ED criteria and engaged in shared decision making. Medical Records Medical records reviewed: Yes I reviewed the patient's medical records. Imaging Data Radiologic Study: Attestation: I personally reviewed and interpreted this imaging study as follows: Imaging: X-Ray Radiologist's impression: Exam: XR Chest Exam date and time: 10/31/2024 8:57 PM Age: 39 years old Clinical indication: Cough TECHNIQUE: Imaging protocol: Radiologic exam of the chest. Views: 2 views. COMPARISON: CR XR RIBS RT W PA LAT CHEST 07/27/2024 11:42 AM FINDINGS: Lungs: No right lung infiltrate. Inferior left lower lobe infiltrate. Pleural spaces: No pleural fluid collection. No pneumothorax. Heart/Mediastinum: Normal heart size. Bones/joints: Unremarkable for patient age. IMPRESSION: Inferior left lower lobe infiltrate. Dictated and Authenticated by: Umair Miles MD. Lab Data Lab results reviewed: Yes I reviewed the patient's lab results. Labs: Laboratory Tests Range/Units 10/31/24 20:38 COVID-19 Source Nasopharynx SARS-CoV-2 (PCR) (Negative) Negative Influenza Type A (PCR) (Negative) Positive A Influenza Type B (PCR) (Negative) Negative RSV (PCR) (Negative) Negative Quality:SDOH Health Related Social Needs: No Data to Display PFSH All Active Problems (Updated 11/01/24 @ 22:22 by MUKUND Olguin) Pneumonia due to influenza A virus (Acute) Asthma (Chronic) Medical History History of herpes genitalis Family History Father Brain tumor at 51 Mother Psoriasis Paternal Aunt Breast cancer Paternal Cousin Breast cancer Paternal Grandmother Breast cancer Thyroid disease Paternal Uncle Thyroid disease Social History (Updated 04/20/23 @ 08:41 by Jesusita Webb) Smoking/Tobacco Use Status: Never Smoking risk assessment performed?: Yes Alcohol Intake: current Alcohol Intake frequency: holidays/special occasions only Drug use: Never Substance use type: does not use Household members: spouse, children and other Details: 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 Pets and animals: Yes Current gender identity: female What type of physical activity do you participate in: regular exercise Duration: 45-60 minutes/day Frequency: daily Seatbelt use: always Helmet use: Yes Drive intox or ride w/intox route driver: No Do you feel safe at home: Yes Do you feel safe in your relationship?: Yes History History 4 Para 3 Hx # Term Pregnancies 3 Multiple births 0 Hx # Pregnancies 0 Ectopic pregnancies 0 AB induced 1 Hx Number of Living Children 3 AB spontaneous 0 Past Pregnancies Del. Date GA/Weeks # Preg Succ Route Wgt Sex Labor Lgth Anesth esia Location [facility] 08/06/16 38 No vaginal 2834.952 g Male 12 [facility] 07/08/18 40 No vaginal 3742.137 g Male 6 local [place] , [place] 02/10/21 39 No vaginal Male less than 3 hours/precipito us LORENA Engel Delivery Date: 08/06/16 Last Updated by: Yudy Ibrahim CNM IOL for mild preeclampsia. No abnormal labs. jaundice. Delivery Date: 07/08/18 Last Updated by: Yudy Ibrahim CNM B.P. elevated post . Labs WNL. Started antihypertensive medication after delivery
[2024-10-31] MEDS: Ibuprofen 400 MG TAB PO (20:40)
--- NOTE | 2024-10-31 20:58 | DI.RAD_ITS ---
Exam(s) XR CHEST 2V PA LATERAL EXAM: XR CHEST 2V PA LATERAL CLINICAL HISTORY: cough TECHNIQUE: 2D digital imaging was performed. Two views. COMPARISON: CR XR RIBS RT W PA LAT CHEST from 07/27/2024 FINDINGS: HEART: Normal size. Aorta: Not dilated. PULMONARY VASCULATURE: Normal. MEDIASTINUM: Unremarkable. LUNGS: Small area infiltration noted at the posterior left lung base. The right lung is clear. PLEURAL SPACE: No pleural effusion or pneumothorax. BONE:Unremarkable for age. SOFT TISSUES: Unremarkable. IMPRESSION: Left lower lobe infiltrate. DATA REPOSITORY: RADIATION DOSE DELIVERED:
--- NOTE | 2024-10-31 21:22 | DI.VRAD_ITS ---
PROCEDURE INFORMATION: Exam: XR Chest Exam date and time: 10/31/2024 8:57 PM Age: 39 years old Clinical indication: Cough TECHNIQUE: Imaging protocol: Radiologic exam of the chest. Views: 2 views. COMPARISON: CR XR RIBS RT W PA LAT CHEST 07/27/2024 11:42 AM FINDINGS: Lungs: No right lung infiltrate. Inferior left lower lobe infiltrate. Pleural spaces: No pleural fluid collection. No pneumothorax. Heart/Mediastinum: Normal heart size. Bones/joints: Unremarkable for patient age. IMPRESSION: Inferior left lower lobe infiltrate. Dictated and Authenticated by: Umair Miles MD. Orderin Jeannette Layne MD
[2024-10-31 21:31] LABS: COVID-19 PCR Negative (Negative); Influenza B PCR Negative (Negative); RSV PCR Negative (Negative)
[2024-10-31 21:44] LABS: Source Nasopharynx
--- OUTSIDE RECORDS SUMMARY | 2024-10-31 21:44 | XMS_ITS | Referral Summary ---
Author Organization [facility] Address [address] [place] [id number] Care Team Providers Care Print Production Coordinator Name Role Phone Unavailable Primary Care Provider Unavailabl e Social History Tobacco Use Types Packs/Day Years Used Date Smoking Tobacco: Never Assessed Interpersonal Safety Answer Date Record ed Physically Hurt Never 09/01/2020 Verbally Threaten Not on file 09/01/2020 Comments Unknown Sex and Gender Information Value Date Recorded Sex Assigned at Not on file Legal Sex Female 12:44 EST Gender Identity Not on file Sexual Orientation Not on file Plan of Treatment Not on file Procedures Procedure Name Priority Date/Time Associated Diagnosis Comments HEPATITIS C AB W REFLEX TO HCV RNA BY PCR Routine 10/31/2023 11:00 EST from Last 3 Months or Most Recently Relevant to Health Maintenance Results * HEPATITIS C AB W REFLEX TO HCV RNA BY PCR (10/31/2023 11:00 EST) Hep C Antibody Negative Negative 11/01/2023 11:07 EST [facility] Blood VENOUS BLOOD / Unknown 10/31/2023 11:00 EST 10/31/2023 21:49 EST us Provider Outr Resulting Lab CHEMISTRY & BLOOD GA S ORDERABLES Final Result [facility] [address] [place] [address] from Last 3 Months or Most Recently Relevant to Health Maintenance
--- OUTSIDE RECORDS SUMMARY | 2024-10-31 21:44 | XMS_ITS | Encounter Summary ---
Author Organization [facility] Address [address] [place] [address] Care Team Providers Care Audio Video Repairer Name Role Phone Unavailable Primary Care Provider Unavailabl e Encounter Details Date Type Department Care Team (Late st Contact Info) Description 10/31/2023 Lab Requisition [facility] Pathology & Laboratory Medicine - [facility] [address] [place] [address] Outr Resulting Lab, Provider Social History Tobacco Use Types Packs/Day Years Used Date Smoking Tobacco: Never Assessed Interpersonal Safety Answer Date Record ed Physically Hurt Never 09/01/2020 Verbally Threaten Not on file 09/01/2020 Comments Unknown Sex and Gender Information Value Date Recorded Sex Assigned at Not on file Legal Sex Female 12:44 EST Gender Identity Not on file Sexual Orientation Not on file documented as of this encounter Plan of Treatment Not on file documented as of this encounter Procedures Procedure Name Priority Date/Time Associated Diagnosis Comments HIV 1/2 ANTIGEN AND ANTIBODY, 4TH GENERATION Routine 10/31/2023 11:00 EST documented in this encounter Results * HIV 1/2 ANTIGEN AND ANTIBODY, 4TH GENERATION (10/31/2023 11:00 EST) HIV 1 and 2 Antibody/p24 Antigen, 4th Generation Negative Negative 11/01/2023 9:41 EST [facility] Comment:If acute HIV-1 infec tion is suspected in a high risk patient, submit plasma specimen for HIV-1 RNA quantitation test. Blood VENOUS BLOOD / Unknown 10/31/2023 11:00 EST 10/31/2023 21:49 EST Narrative [facility] - 11/01/2023 9:41 EST Fourth Generation assay performed on the Siemens EarDishaur XPT. us Provider Outr Resulting Lab IMMUNOLOGY AND SEROL OGY ORDERABLES Final Result [facility] [address] [place] [address] documented in this encounter Visit Diagnoses Not on filedocumented in this encounter
--- OUTSIDE RECORDS SUMMARY | 2024-10-31 21:44 | XMS_ITS | Encounter Summary ---
Author Organization [facility] Address [address] [place] [address] Care Team Providers Care Weekend Anchor Name Role Phone Unavailable Primary Care Provider Unavailabl e Encounter Details Date Type Department Care Team (Late st Contact Info) Description 10/31/2023 Lab Requisition [facility] Pathology & Laboratory Medicine - [address] [address] Outr Resulting Lab, Provider Social History Tobacco [...] Procedure Name Priority Date/Time Associated Diagnosis Comments SYPHILIS SEROLOGY Routine 10/31/2023 11: 00 EST HEPATITIS C AB W REFLEX TO HCV RNA BY PCR Routine 10/31/2023 11:00 EST documented in this encounter Results * SYPHILIS SEROLOGY (10/31/2023 11:00 EST) Syphilis Serology Negative Negative 11/01/2023 10:27 EST [facility] Blood VENOUS BLOOD / Unknown 10/31/2023 11:00 EST 10/31/2023 21:49 EST us Provider Outr Resulting Lab IMMUNOLOGY AND SEROL OGY ORDERABLES Final Result [facility] [address] [place] [address] * HEPATITIS C AB W REFLEX TO HCV RNA BY PCR (10/31/2023 11:00 EST) Hep C Antibody Negative Negative 11/01/2023 11:07 EST [facility] Blood VENOUS BLOOD / Unknown 10/31/2023 11:00 EST 10/31/2023 21:49 EST us Provider Outr Resulting Lab CHEMISTRY & BLOOD GA S ORDERABLES Final Result [facility] [address] [place] [address] documented in this encounter Visit Diagnoses Not on filedocumented in this encounter
--- OUTSIDE RECORDS SUMMARY | 2024-10-31 21:44 | XMS_ITS | Clinical Summary ---
Author Organization [facility] Address [address] [place] [address] Care Team Providers Care Mechanical Product Design Engineer Name Role Phone Unavailable Primary Care Provider [...] Orientation Not on file Plan of Treatment Health Maintenance Due Date Last Done Comments Hepatitis B Vaccine ( of 3 - 19+ 3-dose series) 2003 COVID-19 Vaccine ( season) 2024 Hepatitis C Screen Completed 10/31/2023, 09/01/2020 Procedures Procedure Name Priority Date/Time Associated Diagnosis Comments HEPATITIS C AB W REFLEX TO HCV RNA BY PCR Routine 10/31/2023 11:00 EST from Last 3 Months or Most Recently Relevant to Health Maintenance Results * HEPATITIS C AB W REFLEX TO HCV RNA BY PCR (10/31/2023 11:00 EST) Hep C Antibody Negative Negative 11/01/2023 11:07 EST [facility] Blood VENOUS BLOOD / Unknown 10/31/2023 11:00 EST 10/31/2023 21:49 EST us Provider Outr Resulting Lab CHEMISTRY & BLOOD GA S ORDERABLES Final Result [facility] [address] [place] [address] from Last 3 Months or Most Recently Relevant to Health Maintenance
--- OUTSIDE RECORDS SUMMARY | 2024-10-31 21:44 | XMS_ITS | Encounter Summary ---
Author Organization [facility] Address [address] [place] [address] Care Team Providers Care Manager Cash Name Role Phone Unavailable Primary Care Provider Unavailabl e Encounter Details Date Type Department Care Team (Late st Contact Info) Description 10/31/2023 Lab Requisition [facility] Pathology & Laboratory Medicine - [facility] [address] [place] [address] Outr Resulting Lab, Provider Social History Tobacco [...] Procedure Name Priority Date/Time Associated Diagnosis Comments CHLAMYDIA/N. GONORRHOEAE AMPLIFIED NUCLEIC ACID Routine 10/31/2023 11:00 EST documented in this encounter Results * CHLAMYDIA/N. GONORRHOEAE AMPLIFIED RNA (10/31/2023 11:00 EST) Neisseria gonorrhoeae Result Negative Negative 11/01/2023 14:54 EST [facility] Chlamydia trachomatis Result Negative Negative 11/01/2023 14:54 EST [facility] Urine URINE / Unknown 10/31/2023 1 1:00 EST 10/31/2023 22:03 EST Narrative [facility] - 11/01/2023 14:54 EST A first catch urine specimen is acceptable for detection of Gonorrhea and Chlamydia, but might detect up to 10% fewer infections when compared with vaginal and endocervical swab samples. us Provider Outr Resulting Lab MICROBIOLOGY - GENER AL ORDERABLES Final Result [facility] [address] [place] [address] documented in this encounter Visit Diagnoses Not on filedocumented in this encounter
--- OUTSIDE RECORDS SUMMARY | 2024-10-31 21:44 | XMS_ITS | Encounter Summary ---
Author Organization [facility] Address [address] [place] [address] Care Team Providers Care Mailing Machine Helper Name Role Phone Unavailable Primary Care Provider Unavailabl e Encounter Details Date Type Department Care Team (Late st Contact Info) Description 03/10/2022 Lab Requisition [facility] Pathology & Laboratory Medicine - [facility] [address] [place] [address] Outr Resulting Lab, Provider Social History Tobacco [...] Procedure Name Priority Date/Time Associated Diagnosis Comments [facility] Routine 03/10/2022 13:00 EDT documented in this encounter Results * [facility] (03/10/2022 13:00 EDT) Lead 2.3 <=4.9 ug/dL 03/11/2022 11:29 EDT [facility] Blood VENOUS BLOOD / Unknown 03/10/2022 13:00 EDT 03/10/2022 22:16 EDT Narrative [facility] - 03/11/2022 11:29 EDT Testing performed using Graphite Furnace Atomic Absorption Spectroscopy. This test was developed and its performance characteristics determined by the [facility]. ??It has not been cleared or approved by the FDA. ??The laboratory is regulated under CLIA as qualified to perform high complexity testing. ??This test is used for clinical purposes. us Provider Outr Resulting Lab CHEMISTRY & BLOOD GA S ORDERABLES Final Result [facility] [address] [place] [address] documented in this encounter Visit Diagnoses Not on filedocumented in this encounter
[2024-10-31 21:45] LABS: Influenza A PCR Positive (Negative)
--- OUTSIDE RECORDS SUMMARY | 2024-10-31 21:45 | XMS_ITS | Encounter Summary ---
Author Organization [facility] [address] Care Team Providers Care Manager Business Development Hospice Name Role Phone Rocio Schwarz MD Primary Care Provider [phone] Reason for Referral * Consultation (Routine) - Closed Specialty Diagnoses / Procedures Referred By Contac t Referred To Contact Dermatology Diagnoses Encounter for screening for malignant neoplasm of skin Precious Jordan APRN [address] [place] [address] [facility] [address] [place] [address] Referral ID Status Reason Start Date Expiration Date V isits Requested Visits Authorized [id number] Closed Consult, Test & Treat PCP Updated and/or Approved 11/08/2023 11/07/2024 6 6 Encounter Details Date Type Department Care Team (Latest Contact Info) Description 11/08/2023 Transcribe Orders eDH Incoming Referrals [phone] Precious Jordan APRN [address] [place], [place] [id number] Encounter for screening for malignant neoplasm of skin Social History Tobacco Use Types Packs/Day Years Used Date Smoking Tobacco: Never Smokeless Tobacco: Never Sex and Gender Information Value Date Recorded Sex Assigned at Not on file Gender Identity Not on file Sexual Orientation Not on file documented as of this encounter Plan of Treatment Scheduled Referrals Name Type Priority Associated Diagnoses Order Schedule Referral to Dermatology Outpatient Referral Routine Encounter for screening for malignant neoplasm of skin Ordered: 11/08/2023 documented as of this encounter Visit Diagnoses Diagnosis Encounter for screening for malignant neoplasm of skin Screening for malignant neoplasm of the skin documented in this encounter Care Teams Manager Business Development Hospice Relationship Specialty Start Date End Date Rocio Schwarz MD [facility] [address] [place] [id number] PCP - General Family Medicine 09/29/20 documented as of this encounter
--- OUTSIDE RECORDS SUMMARY | 2024-10-31 21:45 | XMS_ITS | Encounter Summary ---
Author Organization Formerly [facility] Address [facility] [place] [address] Care Team Providers Care Gas Meter Installer Name Role Phone Rocio Schwarz MD Primary Care Provider [phone] Reason for Visit * Consultation (Routine) - Closed Specialty Diagnoses / Procedures Referred By Contac t Referred To Contact Obstetrics and Gynecology Diagnoses Supervision of elderly multigravida, unspecified trimester hx of gestational hypertension x 1st 2 pregnancies Yudy Ibrahim, [address] [place] [address] [facility] Manager [address] [place] [address] Referral ID Status Reason Start Date Expiration Date V isits Requested Visits Authorized [id number] Closed Consult, Test & Treat Connection Center PCP Updated and/or Approved 08/25/2020 08/25/2021 1 1 Encounter Details Date Type Department Care Team (Late st Contact Info) Description 09/29/2020 12:00 PM EST Office Visit Obstetrics [place] [address] [facility] [address] OBSTETRICS [place] [address] Hx of preeclampsia, prior , currently , second trimester; Multigravida of advanced maternal age in second trimester; Marginal insertion of umbilical cord affecting management of mother Social History Tobacco Use Types Packs/Day Years Used Date Smoking Tobacco: Never Smokeless Tobacco: Never Comments Yes Sex and Gender Information Value Date Recorded Sex Assigned at Not on file Gender Identity Not on file Sexual Orientation Not on file documented as of this encounter Last Filed Vital Signs Vital Sign Reading Time Taken Comments Blood Pressure 118/68 09/29/2020 11:27 AM EST Pulse - - Temperature - - Respiratory Rate - - Oxygen Saturation - - Inhaled Oxygen Concentration - - Weight 69.5 kg (153 lb 4.8 oz) 09/29/2020 11:27 AM EST Height 167.6 cm (5' 6) 09/29/2020 11:27 AM EST Body Mass Index 24.74 09/29/2020 11:27 AM EST documented in this encounter Progress Notes * Andry Hwang MD - 09/29/2020 12:00 PM EST Previsit charting: Asked by Yudy Ibrahim to see this 35 yo at 20w1d weeks with AMA, history of hypertensive disorder of for detailed morphology US and MFM consultation. pOB hx: 08/06/16: IOL for mild preeclampsia, 07/08/18: hypertension US today was reassuring: Normally grown, normally formed finn with normal amniotic fluid volume and normal appearing posterior placenta with marginal cord insertion. A/P: 35 yo at 20+ weeks with AMA and prior hypertensive disorder of high risk for hypertensive disorder of . 1) AMA- increased risk of aneuploidy. Pt reports reassuring cfDNA ([place]), but this record was not in the referral records. At some increased risk of uteroplacental insufficiency. 2) Marginal umbilical cord insertion. This may be associated with an increased risk of uteroplacental insufficiency, but the vast majority of pregnancies with this finding have a normal outcome. 3) Prior hypertensive disorder of (Preeclampsia with first, hypertension with the second). Recommend - ASA prophylaxis (pt already on this). - Consider home blood pressure monitoring after 20-24 weeks. - Follow up growth scan in the early 3rd trimester may be reasonable given AMA and marginal cord insertion. This can be done locally. MD Bianca 20 minutes of this 30 minute consultation was spent directly counseling the patient. documented in this encounter Plan of Treatment Not on file documented as of this encounter Visit Diagnoses Diagnosis Hx of preeclampsia, prior , currently , second trimester Multigravida of advanced maternal age in second trimester Marginal insertion of umbilical cord affecting management of mother documented in this encounter Care Teams Gas Meter Installer Relationship Specialty Start Date End Date Rocio Schwarz MD [facility] [address] [place] [address] PCP - General Family Medicine 09/29/20 documented as of this encounter
--- OUTSIDE RECORDS SUMMARY | 2024-10-31 21:45 | XMS_ITS | Encounter Summary ---
Author Organization [facility] Address [address] [place] [address] Care Team Providers Care Fountain Supervisor Name Role Phone Unavailable Primary Care Provider Unavailabl e Encounter Details Date Type Department Care Team (Late st Contact Info) Description 09/01/2020 Lab Requisition [facility] Pathology & Laboratory Medicine - [address] [address] Outr Resulting Lab, Provider Social History Tobacco [...] Procedure Name Priority Date/Time Associated Diagnosis Comments RUBELLA IGG ANTIBODY Routine 09/01/2020 11:30 EST VARICELLA IGG ANTIBODY Routine 09/01/2020 11:30 EST documented in this encounter Results * VARICELLA IGG ANTIBODY (09/01/2020 11:30 EST) Varicella IgG Ab Positive See Note 09/02/2020 10:38 EST [facility] Comment:Presence of detectab le Varicella Zoster virus IgG antibodies. Blood VENOUS BLOOD / Unknown 09/01/2020 11:30 EST 09/01/2020 15:45 EST us Provider Outr Resulting Lab IMMUNOLOGY AND SEROL OGY ORDERABLES Final Result [facility] [address] [place] [address] * RUBELLA IGG ANTIBODY (09/01/2020 11:30 EST) Rubella IgG Ab Positive See Note 09/02/2020 10:41 EST [facility] Comment:Positive for IgG ant ibodies to Rubella virus. Blood VENOUS BLOOD / Unknown 09/01/2020 11:30 EST 09/01/2020 15:45 EST us Provider Outr Resulting Lab CHEMISTRY & BLOOD GA S ORDERABLES Final Result [facility] [address] [place] [address] documented in this encounter Visit Diagnoses Not on filedocumented in this encounter
--- OUTSIDE RECORDS SUMMARY | 2024-10-31 21:45 | XMS_ITS | Encounter Summary ---
Author Organization [facility] Address [address] [place] [address] Care Team Providers Care Airplane Dispatch Clerk Name Role Phone Unavailable Primary Care Provider Unavailabl e Encounter Details Date Type Department Care Team (Late st Contact Info) Description 03/27/2021 Lab Requisition [facility] Pathology & Laboratory Medicine - [facility] [address] [place] [address] [place], [place] [id number] Encounter for other general examination Social History Tobacco Use Types Packs/Day Years [...] Procedure Name Priority Date/Time Associated Diagnosis Comments PAP TEST Today 03/26/2021 11:00 EDT Encounter for other general examination HPV DNA DETECTION WITH GENOTYPING, PCR Today 03/26/2021 11:00 EDT Encounter for other general examination documented in this encounter Results * HUMAN PAPILLOMAVIRUS (HPV) DETECTION-HIGH RISK TYPES (03/26/2021 11:00 EDT) HPV other High Risk types, PCR Negative Negative 04/07/2021 15:00 EDT [facility] Comment:No E6 or E7 mRNA is detected from HPV types 16,18,31,33,35,39,45,51,52,56,58,59,66, and 68 by whipper mediated amplification. Papanicolaou smear specimen (specimen) CERVIX UTERI STRUCTURE / Unknown 03/26/2021 11:00 EDT 04/06/2021 13:03 EDT Marija Sanchez Toya [facility] MICROBIOLOGY - GENERAL ORDERA BLES Final Result [facility] [address] [place] [address] * PAP TEST (03/26/2021 11:00 EDT) Specimens A. Cervix and/or Endocervix , ThinPrep Imaging System with Manual Evaluation 04/07/2021 15:01 T [facility] Specimen Adequacy Satisfactory for Evaluation - transformation zone component present Scant squamous epithelial component 04/07/2021 15:01 T [facility] General Categorization Negative for intraepithelial lesion or malignancy 04/07/2021 15:01 T [facility] Attestation . 04/07/2021 15:01 [facility] at 1500 Clinical History See below 04/07/20 21 15:01 T [facility] HPV The result for the Human Papillomavirus (HPV) Detection-High Risk Types is Negative. No E6 or E7 mRNA is detected from HPV types 16,18,31,33,35,39 ,45,51,52,56,58,5 9,66, and 68 by whipper mediated amplification.Bebe ting was performed on specimen [id number] and was resulted on 04/07/2021 1458 EDT by CAMILA, LAB INSTRUMENT RESULTS IN 04/07/2021 15:01 T [facility] Performing Lab [facility] 04/07/2021 15:01 T [facility] Scanned Images 04/07/2021 15:01 T [facility] Papanicolaou smear specimen (specimen) CERVIX UTERI STRUCTURE / Unknown 03/26/2021 11:00 EDT 03/27/2021 15:33 EDT us Marija Pittman [facility] PATHOLOGY ORDERABLES Final Re sult [facility] [address] [place] [address] documented in this encounter Visit Diagnoses Diagnosis Encounter for other general examination documented in this encounter
--- OUTSIDE RECORDS SUMMARY | 2024-10-31 21:45 | XMS_ITS | Encounter Summary ---
Author Organization [facility] Address [address] [place] [address] Care Team Providers Care Automatic Pad Making Machine Operator Name Role Phone Unavailable Primary Care Provider Unavailabl e Encounter Details Date Type Department Care Team (Late st Contact Info) Description 09/01/2020 Lab Requisition [facility] Pathology & Laboratory Medicine - [address] [address] Outr Resulting Lab, Provider Social History Tobacco [...] REFLEX TO HCV RNA BY PCR Routine 09/01/2020 11:30 EST HEPATITIS B SURFACE ANTIGEN Routine 09/01/2020 11:30 EST documented in this encounter Results * HEPATITIS B SURFACE ANTIGEN (09/01/2020 11:30 EST) Hep B Surface Ag Negative Negative 09/02/2020 10:00 EST [facility] Blood VENOUS BLOOD / Unknown 09/01/2020 11:30 EST 09/01/2020 15:45 EST us Provider Outr Resulting Lab CHEMISTRY & BLOOD GA S ORDERABLES Final Result [facility] [address] [place] [address] * HEPATITIS C AB W REFLEX TO HCV RNA BY PCR (09/01/2020 11:30 EST) Hep C Antibody Negative Negative 09/02/2020 10:56 EST [facility] Blood VENOUS BLOOD / Unknown 09/01/2020 11:30 EST 09/01/2020 15:45 EST us Provider Outr Resulting Lab CHEMISTRY & BLOOD GA S ORDERABLES Final Result [facility] [address] [place] [address] documented in this encounter Visit Diagnoses Not on filedocumented in this encounter
--- OUTSIDE RECORDS SUMMARY | 2024-10-31 21:45 | XMS_ITS | Encounter Summary ---
Author Organization [facility] Address [facility] [place] [address] Care Team Providers Care Funeral Director Name Role Phone Rocio Schwarz MD Primary Care Provider [phone] Encounter Details Date Type Department Care Team (Latest Contact Info) Description 02/12/2021 3:46 PM EDT - 02/12/2021 4:18 PM EDT Hospital [place] [address] Bebe Jorge MD [facility] [place] [address] Discharge Disposition: Home Social History Tobacco Use Types Packs/Day Years Used Date Smoking Tobacco: Never Smokeless Tobacco: Never Comments Yes Sex and Gender Information Value Date Recorded Sex Assigned at Not on file Gender Identity Not on file Sexual Orientation Not on file documented as of this encounter Last Filed Vital Signs Vital Sign Reading Time Taken Comments Blood Pressure 148/82 02/12/2021 4:11 PM EDT Pulse 83 02/12/2021 4:11 PM EDT Temperature 36.6 ??C (97.9 ??F) 02/12/2021 4:11 PM ED T Respiratory Rate 16 02/12/2021 4:11 PM EDT Oxygen Saturation 100% 02/12/2021 4:11 PM EDT Inhaled Oxygen Concentration - - Weight - - Height - - Body Mass Index - - documented in this encounter Medications at Time of Discharge Medication Sig Dispensed Refills Start Date End Date vitamin 27 & [id number] 60 mg iron-1 mg Tablet Take 1 tablet by mouth daily. cholecalciferol, Vitamin D3, (cholecalciferol, Vitamin D3,) 50 mcg (2,000 unit) Capsule Take by mouth. aspirin EC 81 mg Tablet, Delayed Release (E.C.) Take 81 mg by mouth daily. budesonide (PULMICORT) 0.5 mg/2 mL Suspension for Nebulization Take 0.5 mg by nebulization daily. documented as of this encounter Progress Notes * Melissa Dennis RN - 02/12/2021 4:18 PM EDT Pt presents for BP check from visiting in ICN. BP reviewed with MD Gomez and MD Jorge. Okay to discharge back to ICN. documented in this encounter Plan of Treatment Not on file documented as of this encounter Visit Diagnoses Not on filedocumented in this encounter Care Teams Funeral Director Relationship Specialty Start Date End Date Rocio Schwarz MD [facility] [address] [place] [id number] PCP - General Family Medicine 09/29/20 documented as of this encounter
--- OUTSIDE RECORDS SUMMARY | 2024-10-31 21:45 | XMS_ITS | Encounter Summary ---
Author Organization [facility] Address [address] [place] [address] Care Team Providers Care Design Assembler Name Role Phone Unavailable Primary Care Provider Unavailabl e Encounter Details Date Type Department Care Team (Late st Contact Info) Description 09/01/2020 Lab Requisition [facility] Pathology & Laboratory Medicine - [facility] [address] [place] [address] Outr Resulting Lab, Provider Social History Tobacco [...] 1/2 ANTIGEN AND ANTIBODY, 4TH GENERATION Routine 09/01/2020 11:30 EST documented in this encounter Results * HIV 1/2 ANTIGEN AND ANTIBODY, 4TH GENERATION (09/01/2020 11:30 EST) HIV 1 and 2 Antibody/p24 Antigen, 4th Generation Negative Negative 09/02/2020 12:40 EST [facility] Comment: If acute HIV-1 infection is suspected in a high risk ??patient, submit plasma specimen for HIV-1 RNA quantitation test. Fourth Generation assay performed on the Siemens Centaur. Blood VENOUS BLOOD / Unknown 09/01/2020 11:30 EST 09/01/2020 15:45 EST us Provider Outr Resulting Lab IMMUNOLOGY AND SEROL OGY ORDERABLES Final Result [facility] [address] [place] [address] documented in this encounter Visit Diagnoses Not on filedocumented in this encounter
--- OUTSIDE RECORDS SUMMARY | 2024-10-31 21:45 | XMS_ITS | Clinical Summary ---
Author Organization [facility] Address [facility] [place] [address] Care Team Providers Care Wastewater Treatment Engineer Name Role Phone Rocio Schwarz MD Primary Care Provider [phone] Allergies Active Allergy Reactions Criticality Noted Date Comments Epinephrine Low 09/29/2020 Medications Medication Sig Dispensed Refills Start Date End Date Status vitamin 27 & [id number] 60 mg iron-1 mg Tablet Take 1 tablet by mouth daily. Active cholecalciferol, Vitamin D3, (cholecalciferol, Vitamin D3,) 50 mcg (2,000 unit) Capsule Take by mouth. Active aspirin EC 81 mg Tablet, Delayed Release (E.C.) Take 81 mg by mouth daily. Active budesonide (PULMICORT) 0.5 mg/2 mL Suspension for Nebulization Take 0.5 mg by nebulization daily. Active Active Problems Problem Noted Date Diagnosed Date Hx of preeclampsia, prior pr egnancy, currently , second trimester 10/01/2020 Marginal insertion of umbili cris cord affecting management of mother 10/01/2020 Multigravida of advanced maternal age in second trimester 10/01/2020 Social History Tobacco Use Types Packs/Day Years Used Date Smoking Tobacco: Never Smokeless Tobacco: Never Sex and Gender Information Value Date Recorded Sex Assigned at Not on file Gender Identity Not on file Sexual Orientation Not on file Last Filed Vital Signs Vital Sign Reading Time Taken Comments Blood Pressure 148/82 02/12/2021 4:11 PM EDT Pulse 83 02/12/2021 4:11 PM EDT Temperature 36.6 ??C (97.9 ??F) 02/12/2021 4:11 PM ED T Respiratory Rate 16 02/12/2021 4:11 PM EDT Oxygen Saturation 100% 02/12/2021 4:11 PM EDT Inhaled Oxygen Concentration - - Weight 69.5 kg (153 lb 4.8 oz) 09/29/2020 11:27 AM EST Height 167.6 cm (5' 6) 09/29/2020 11:27 AM EST Body Mass Index 24.74 09/29/2020 11:27 AM EST Plan of Treatment Health Maintenance Due Date Last Done Comments HIV screen 2002 Hepatitis C Screening 2002 Hepatitis B vaccine (0-59 yrs) (1) 2003 Tetanus/Diphtheria/Pertussis Vaccines (1 - Tdap) 09/07 HPV test 2014 PAP Smear 2014 Covid-19 Vaccine ( - season) 2024 Influenza (Flu) vaccine (1 o f 1 - Influenza standard series) 05/27/2024 Breast Cancer Share Decision Needed 2024 Breast Cancer screening 2024 Care Teams Wastewater Treatment Engineer Relationship Specialty Start Date End Date Rocio Schwarz MD [facility] [address] [place] [id number] PCP - General Family Medicine 09/29/20
--- OUTSIDE RECORDS SUMMARY | 2024-10-31 21:45 | XMS_ITS | Encounter Summary ---
Author Organization [facility] [place] [address] Care Team Providers Care Hemodialysis Charge Nurse Name Role Phone Rocio Schwarz MD Primary Care Provider [phone] Encounter Details Date Type Department Care Team (Latest Contact Info) Description 09/29/2020 9:51 AM EST - 09/29/2020 11:59 PM [facility] Hospital [place] [address] [place] [address] [place] [address] [address] LOPEZ ILLydia [place], [place] [address] Elderly multigravida with antepartum condition or complication Discharge Disposition: Home Social History Tobacco Use Types Packs/Day Years Used Date Smoking Tobacco: Never Smokeless Tobacco: Never Comments Yes Sex and Gender Information Value Date Recorded Sex Assigned at Not on file Gender Identity Not on file Sexual Orientation Not on file documented as of this encounter Medications at Time of Discharge Medication Sig Dispensed Refills Start Date End Date vitamin 27 & [id number] 60 mg iron-1 mg Tablet Take 1 tablet by mouth daily. cholecalciferol, Vitamin D3, (cholecalciferol, Vitamin D3,) 50 mcg (2,000 unit) Capsule Take by mouth. aspirin EC 81 mg Tablet, Delayed Release (E.C.) Take 81 mg by mouth daily. budesonide (PULMICORT) 0.5 mg/2 mL Suspension for Nebulization Take 0.5 mg by nebulization daily. documented as of this encounter Plan of Treatment Not on file documented as of this encounter Procedures Procedure Name Priority Date/Time Associated Diagnosis Comments US OB DETAILED MORPHOLOGY Routine 09/29/2020 10:39 AM EST Elderly multigravida with antepartum condition or complication documented in this encounter Results * US OB Detailed Morphology (09/29/2020 10:39 AM EST) Anatomical Region Laterality Modality Pelvis, Abdomen Ultrasound 09/29/2020 10:3 3 AM EST Impressions 09/29/2020 11:46 AM EST 2nd Trimester - Detailed Morphology - Summary Single intrauterine with a gestational age of 20w 1d based on LMP ??(05/11/20) Composite age based on the current ultrasound alone is 20w 2d. Current growth parameters are consistent with prior dating indicating normal growth. Amniotic fluid volume is subjectively normal for gestational age. Detailed anatomic evaluation was performed, an echogenic intracardiac foci is identified. This most likely represents a normal variant. ??No additional structural abnormalities are noted. ?Andry Hwang, Staff Physician Electronically Signed Final Report ?? 09/29/2020 11:46 am Narrative 09/29/2020 11:46 AM EST OBSTETRICS REPORT ?(Signed Final 09/29/2020 11:46 am) PATIENT INFO: ID #: ? [id number] ?: ??[birth year] (35 yrs)(F) Name: ? YAMEL BARRON ? Visit Date: 09/29/2020 10:33 am PERFORMED BY: Performed By: ? Yoni GONZALES, ??[place] Attending: ?Jaiden CARVER, Andry N. Referred By: ?TEVIN IBRAHIM Location: ? [place] SERVICE(S) PROVIDED: ??[facility] - Detailed Morphology - [id number] ?[id number] INDICATIONS: ??20 weeks gestation of ?Z3A.20 ??AMA, hx of gestational hypertension EVALUATION: Num Of Fetuses: ? 1 Heart Rate(bpm): ??143 Cardiac Activity: ? Observed, normal rhythm Presentation: ? Cephalic Placenta: ? Posterior P. Cord Insertion: ?Marginal Amniotic Fluid KOBI FV: ?Subjectively normal for gestational age --------- BIOMETRY: --------- BPD: ?50.4 ??mm ? G.Age: ?? 21w 2d OFD: ?63.4 ??mm HC: ?180.6 ??mm ? G.Age: ?? 20w 3d AC: ?149.6 ??mm ? G.Age: ?? 20w 1d FL: ? 30.6 ??mm ? G.Age: ?? 19w 3d HUM: ?31.2 ??mm ? G.Age: ?? 20w 3d CER: ?21.0 ??mm ? G.Age: ?? 20w 0d NFT: ? 5.0 ??mm LV: ?5.6 ??mm CM: ?2.5 ??mm CI: ?79.5 ??% ? 70 - 86 FL/HC: ? 16.9 ??% ? 16.8 - 19.8 HC/AC: ? 1.21 ?1.09 - 1.39 FL/BPD: ?60.7 ??% FL/AC: ? 20.5 ??% ? - Est. FW: ? 325 ??gm ?0 lb 11 oz OB HISTORY: : ?3 ? Term: ?? 2 Living: ? 2 GESTATIONAL AGE: LMP: ? 20w 1d ?Date: ??05/11/20 ? CLEM: ?? 02/15/21 U/S Today: ? 20w 2d ?CLEM: ?? 02/14/21 Best: ?20w 1d ?? Det. By: ??LMP ??(05/11/20) ?CLEM: ?? 02/15/21 TARGETED ANATOMY: Central Nervous System Calvarium/Cranial V.: ??Within Normal Limits Intracranial Liat: ? Within Normal Limits Cavum: ? Within Normal Limits Parenchyma: ?Within Normal Limits Lateral Ventricles: ?Within Normal Limits Choroid Plexus: ?Within Normal Limits Cereb./Vermis: ? Within Normal Limits Cisterna Magna: ?Within Normal Limits Midline Falx: ?Within Normal Limits Spine Cervical: ?Visualized Thoracic: ?Visualized Lumbar: ?Visualized Sacral: ?Visualized Shape/Curvature: ? Visualized Head/Neck Face: ?Within Normal Limits Lips: ?Within Normal Limits Neck: ?Within Normal Limits Nuchal Fold: ? Within Normal Limits Nasal Bone: ?Present Profile: ? Visualized Orbits/Eyes: ? Visualized Mandible: ?Visualized Maxilla: ? Visualized Thorax Thoracic Contour: ?Within Normal Limits Lungs: ? Visualized 4 Chamber View: ?Echogenic intracardi Cardiac Motion: ?Normal Rhythm Rt Outflow Tract: ?Visualized Lt Outflow Tract: ?Visualized Aortic Arch: ? Visualized Ductal Arch: ? Visualized SVC: ? Visualized Cardiac [place]: ?Visualized Diaphragm: ? Visualized 3 Vessel View: ? Visualized IVC: ? Visualized Abdomen Ventral Wall: ?Visualized Cord Insertion: ?Visualized Situs: ? Normal Stomach: ? Visualized Liver: ? Visualized Lt Kidney: ? Visualized Rt Kidney: ? Visualized Bladder: ? Visualized Bowel: ? Visualized Extremities Lt Humerus: ?Within Nomal Limits Rt Humerus: ?Within Normal Limits Lt Forearm: ?Within Normal Limits Rt Forearm: ?Within Normal Limits Lt Hand: ? Within Normal Limits Rt Hand: ? Within Normal Limits Lt Femur: ?Within Normal Limits Rt Femur: ?Within Normal Limits Lt Lower Leg: ?Within Normal Limits Rt Lower Leg: ?Within Normal Limits Lt Foot: ? Visualized Rt Foot: ? Visualized Other Umbilical Cord: ?3 vessel cord Genitalia: ? Normal CERVIX UTERUS ADNEXA: Left Ovary Visualized Right Ovary Visualized Procedure Note Andry Hwang MD - 09/29/2020 OBSTETRICS REPORT (Signed Final 09/29/2020 11:46 am) PATIENT INFO: ID #: [id number] : [birth year] (35 yrs)(F) Name: YAMEL BARRON Visit Date: 09/29/2020 10:33 am PERFORMED BY: Performed By: Heaven Vallejo RDMS Attending: Andry Hwang MD Referred By: TEVIN IBRAHIM Location: [place] SERVICE(S) PROVIDED: [facility] - Detailed Morphology - [id number] INDICATIONS: 20 weeks gestation of Z3A.20 AMA, hx of gestational hypertension EVALUATION: Num Of Fetuses: 1 Heart Rate(bpm): 143 Cardiac Activity: Observed, normal rhythm Presentation: Cephalic Placenta: Posterior P. Cord Insertion: Marginal Amniotic Fluid KOBI FV: Subjectively normal for gestational age --------- BIOMETRY: --------- BPD: 50.4 mm G.Age: 21w 2d OFD: 63.4 mm HC: 180.6 mm G.Age: 20w 3d AC: 149.6 mm G.Age: 20w 1d FL: 30.6 mm G.Age: 19w 3d HUM: 31.2 mm G.Age: 20w 3d CER: 21.0 mm G.Age: 20w 0d NFT: 5.0 mm LV: 5.6 mm CM: 2.5 mm CI: 79.5 % 70 - 86 FL/HC: 16.9 % 16.8 - 19.8 HC/AC: 1.21 1.09 - 1.39 FL/BPD: 60.7 % FL/AC: 20.5 % 20 - 24 Est. FW: 325 gm 0 lb 11 oz OB HISTORY: : 3 Term: 2 [place] GESTATIONAL AGE: LMP: 20w 1d Date: 05/11/20 CLEM: 02/15/21 U/S Today: 20w 2d CLEM: 02/14/21 Best: 20w 1d Det. By: LMP (05/11/20) CLEM: 02/15/21 TARGETED ANATOMY: Central Nervous System Calvarium/Cranial V.: Within Normal Limits Intracranial Liat: Within Normal Limits Cavum: Within Normal Limits Parenchyma: Within Normal Limits Lateral Ventricles: Within Normal Limits Choroid Plexus: Within Normal Limits Cereb./Vermis: Within Normal Limits Cisterna Magna: Within Normal Limits Midline Falx: Within Normal Limits Spine Cervical: Visualized Thoracic: Visualized Lumbar: Visualized Sacral: Visualized Shape/Curvature: Visualized Head/Neck Face: Within Normal Limits Lips: Within Normal Limits Neck: Within Normal Limits Nuchal Fold: Within Normal Limits Nasal Bone: Present Profile: Visualized Orbits/Eyes: Visualized Mandible: Visualized Maxilla: Visualized Thorax Thoracic Contour: Within Normal Limits Lungs: Visualized 4 Chamber View: Echogenic intracardi Cardiac Motion: Normal Rhythm Rt Outflow Tract: Visualized Lt Outflow Tract: Visualized Aortic Arch: Visualized Ductal Arch: Visualized SVC: Visualized Cardiac [place]: Visualized Diaphragm: Visualized 3 Vessel View: Visualized IVC: Visualized Abdomen Ventral Wall: Visualized Cord Insertion: Visualized Situs: Normal Stomach: Visualized Liver: Visualized Lt Kidney: Visualized Rt Kidney: Visualized Bladder: Visualized Bowel: Visualized Extremities Lt Humerus: Within Nomal Limits Rt Humerus: Within Normal Limits Lt Forearm: Within Normal Limits Rt Forearm: Within Normal Limits Lt Hand: Within Normal Limits Rt Hand: Within Normal Limits Lt Femur: Within Normal Limits Rt Femur: Within Normal Limits Lt Lower Leg: Within Normal Limits Rt Lower Leg: Within Normal Limits Lt Foot: Visualized Rt Foot: Visualized Other Umbilical Cord: 3 vessel cord Genitalia: Normal CERVIX UTERUS ADNEXA: Left Ovary Visualized Right Ovary Visualized IMPRESSION 2nd Trimester - Detailed Morphology - Summary Single intrauterine with a gestational age of 20w 1d based on LMP (05/11/20) Composite age based on the current ultrasound alone is 20w 2d. Current growth parameters are consistent with prior dating indicating normal growth. Amniotic fluid volume is subjectively normal for gestational age. Detailed anatomic evaluation was performed, an echogenic intracardiac foci is identified. This most likely represents a normal variant. No additional structural abnormalities are noted. Andry Hwang, Staff Physician Electronically Signed Final Report 09/29/2020 11:46 am Tevin Ibrahim CN IMG US OB ORDERABLE S documented in this encounter Visit Diagnoses Diagnosis Elderly multigravida with antepartum condition or complication documented in this encounter Care Teams Hemodialysis Charge Nurse Relationship Specialty Start Date End Date Rocio Schwarz MD [facility] [address] [place] [id number] PCP - General Family Medicine 09/29/20 documented as of this encounter
--- OUTSIDE RECORDS SUMMARY | 2024-10-31 21:45 | XMS_ITS | Encounter Summary ---
Author Organization [facility] Address [address] [place] [address] Care Team Providers Care Meat Processor Name Role Phone Unavailable Primary Care Provider Unavailabl e Encounter Details Date Type Department Care Team (Late st Contact Info) Description 03/26/2021 Lab Requisition [facility] Pathology & Laboratory Medicine - [address] [address] Outr Resulting Lab, Provider Social History Tobacco [...] Associated Diagnosis Comments CHLAMYDIA/N. GONORRHOEAE AMPLIFIED NUCLEIC ACID, THINPREP Routine 03/26/2021 11:00 EDT documented in this encounter Results * CHLAMYDIA/N. GONORRHOEAE AMPLIFIED RNA, THINPREP (03/26/2021 11:00 EDT) Neisseria gonorrhoeae Result Negative Negative 03/27/2021 16:12 EDT [facility] Chlamydia trachomatis Result Negative Negative 03/27/2021 16:12 EDT [facility] Papanicolaou smear specimen (specimen) CERVIX UTERI STRUCTURE / Unknown 03/26/2021 11:00 EDT 03/27/2021 9:29 EDT us Provider Outr Resulting Lab MICROBIOLOGY - GENER AL ORDERABLES Final Result [facility] [address] [place] [address] documented in this encounter Visit Diagnoses Not on filedocumented in this encounter
[2024-10-31 21:55] VITALS: PULSE 94; RESP 20; O2SAT 97
== END 2024-10-31 21:55 | disposition home or self-care (01) ==
LOC: ER 21:43
PROVIDERS: Emergency Provider Physician Assistant; PCP Nurse Practitioner Family
DX: J10.00 Influenza due to other identified influenza virus with unspecified type of pneumonia (principal)
CPT/HCPCS: 87637; 99284; 71046